=== PATIENT | female | born 1980 | race Caucasian/White ===

== ENCOUNTER 2019-09-12 10:20 | Outpatient (RCR) | payer MEDICARE, MEDICAID, SELFPAY | END 2019-12-08 23:59 | disposition home or self-care (01) | LOC: ANHLAB 10:20 | PROVIDERS: PCP Internal Medicine; Visit Provider Internal Medicine Critical Care Medicine | DX: J47.9 Bronchiectasis, uncomplicated (principal); J84.115 Respiratory bronchiolitis interstitial lung disease | CPT/HCPCS: 87015; 87070; 87102; 87106; 87116; 87205; 87206 ==

== ENCOUNTER 2019-12-29 10:40 | Outpatient (CLI) | payer MEDICARE, MEDICAID, SELFPAY ==
--- NOTE | ~2019-12-29 | CT_ITS ---
EXAMINATION:CT chest wo con DATE: 12/29/2019 10:59 INDICATION: Other nonspecific abnormal finding of lung field. Chronic obstructive pulmonary disease. TECHNIQUE: Computed tomography (CT) of the chest was performed without intravenous contrast. Automate d exposure control and iterative reconstruction technique were employed. The dose-length product (DLP ) was 132.86 mGy-cm. COMPARISON: Chest CT 05/04/2018 FINDINGS: There is mild emphysema. There is mild atelectasis in the inferior lungs. There is mild sca rring at the lung apices. There are a few stable bilateral pulmonary nodules measuring up to 5 mm nod ule in left upper lobe, consistent with granulomatous disease. No pleural effusion. The heart size is normal. No pericardial effusion. There is mild thoracic spondylosis. There is a benign bone island i n T11 vertebral body. IMPRESSION: 1. Mild emphysema. Reviewed, dictated and finalized at location A. IMPRESSION: 1. Mild emphysema.
== END 2019-12-29 10:41 | disposition home or self-care (01) ==
PROVIDERS: PCP Internal Medicine; Visit Provider Internal Medicine Critical Care Medicine
DX: J43.9 Emphysema, unspecified (principal)
CPT/HCPCS: 71250

== ENCOUNTER → 2020-04-05 14:56 | Outpatient (REF) | payer MEDICARE, MEDICAID, SELFPAY | LOC: ANHLAB 14:56 | PROVIDERS: PCP Internal Medicine; Visit Provider Nurse Practitioner | DX: D22.5 Melanocytic nevi of trunk (principal) | CPT/HCPCS: 88305; 88342 ==

== ENCOUNTER → 2020-07-12 08:43 | Outpatient (CLI) | payer MEDICARE, MEDICAID, SELFPAY ==
--- NOTE | ~2020-07-12 | MMUS_ITS ---
EXAMINATION: MM diagnostic isabel BI w vicky, US breast BI complete HISTORY: Chronic right breast lump TECHNIQUE: ML, MLO and craniocaudal 3-D tomosynthesis images of were performed and synthetic 2-D imag es were generated. CAD analysis was submitted and interpreted. High resolution complete bilateral silvia ast ultrasound was performed. COMPARISON: 07/05/2018 bilateral diagnostic mammogram and complete bilateral breast ultrasound 08/02/2015 bilateral diagnostic digital mammogram and Limited bilateral breast ultrasound examination BREAST PARENCHYMAL COMPOSITION: The breasts are extremely dense, which lowers the sensitivity of mamm ography. FINDINGS: MAMMOGRAPHIC FINDINGS: A few benign calcifications are noted on the right. No suspicious mass, architectural distortion, mal ignant calcification, skin thickening or retraction of either breast is evident. ULTRASOUND: Right breast: 12:00 2 cm from nipple: Parallel circumscribed sonolucency measuring 3.7 x 4.8 x 2.4 mm, with through transmission, compatible with cyst. 12:00 2 cm from nipple: 3.3 x 3.0 x 2.6 mm mildly septated cyst 1:00 1 cm from nipple: Parallel circumscribed sonolucency measuring 2.1 x 7.2 x 6.3 mm, with through transmission, consistent with simple cyst 3:00 1 cm from nipple: Parallel circumscribed 1.3 x 3.6 x 3.9 mm simple cyst 6:00 2 cm from nipple: 1.5 x 3.4 mm parallel circumscribed sonolucency, likely a small cyst 7:00 2 cm from nipple: 2.8 x 5 x 2.7 mm parallel circumscribed hypoechoic lesion, with through transm ission, likely a small cyst 9:00 3 cm from nipple: Parallel circumscribed 2.7 x 5.0 mm x 5.3 mm sonolucency with through transmis kiarra posterior enhancement, likely a cyst 3.5 mm subareolar right renal cyst Left breast: Superficial parallel circumscribed 9.2 x 2.8 x 6.2 mm sonolucency, consistent with benign lesion, lik shara a cyst 5:00 1 cm from nipple: Parallel circumscribed hypoechoic 6 x 6.4 x 1.9 mm sonolucency consistent with simple cyst 9:00 2 cm from nipple: Parallel circumscribed hypoechoic 3.2 x 2.9 x 4.3 mm lesion without internal v ascularity or suspicious shadowing, consistent with benign process. IMPRESSION: 1. No mammographic evidence of malignancy 2. Routine annual mammographic screening is recommended. BI-RADS Category 2: Benign finding(s). Reviewed, dictated and finalized at location A. ER FELLER IMPRESSION: 1. No mammographic evidence of malignancy 2. Routine annual mammographic screening is recommended. BI-RADS Category 2: Benign finding(s).
== END ==
PROVIDERS: PCP Internal Medicine; Visit Provider Internal Medicine
DX: N63.10 Unspecified lump in the right breast, unspecified quadrant (principal); R92.2 Inconclusive mammogram
CPT/HCPCS: 76641; 77062; 77066; G0279

== ENCOUNTER 2020-12-30 16:38 | Emergency (ER) | payer MEDICARE, MEDICAID, SELFPAY ==
--- NOTE | ~2020-12-30 | XR_ITS ---
EXAMINATION: XR chest 2V 12/30/2020 17:01 INDICATION: For 3 days PROCEDURE: 2 view chest COMPARISON: 03/15/2017 FINDINGS: The lungs are clear. The cardiomediastinal silhouette is within normal limits. There are no pleural effusions. There is no pneumothorax suspected. IMPRESSION: 1: NO ACUTE CARDIOPULMONARY DISEASE. Reviewed, dictated and finalized at location A.
--- NOTE | 2020-12-30 16:46 | ED.URI ---
HPI - URI/Sore Throat General Chief Complaint: Upper Respiratory Infection Stated Complaint: chest tightness/cough/runny nose Time Seen by Provider: 12/30/20 16:46 Source: patient and RN notes reviewed Mode of arrival: ambulatory Limitations: no limitations History of Present Illness HPI Narrative: 40-year-old female presents to the [facility] with complaints of cough, runny nose. States her symptoms started , 3 days ago and every day it has been getting worse. Has a nebulizer at home due to her chronic COPD and emphysema however has not used it. Has tried taking Zyrtec and DayQuil but states her symptoms are not getting any better. Denies chest pain. Denies fevers. No abdominal pain. Related Data Home Medications Medication Instructions Recorded Confirmed albuterol sulfate 90 mcg/actuation 1 puff INHALATION Q4H PRN 06/11/20 12/10/20 aerosol inhaler glycopyrrolate 9 mcg-formoterol 2 puff INHALATION Q12H 06/11/20 12/10/20 4.8 mcg HFA aerosol inhaler glycopyrrolate-formoterol [Bevespi INHALATION 12/30/20 Aerosphere] metronidazole VAGINAL 12/30/20 Allergies Allergy/AdvReac Type Severity Reaction Status Date / Time phenytoin Allergy Unknown Hives Verified 12/10/20 10:19 venom-wasp AdvReac Intermediate Muscle Pain Verified 12/10/20 10:19 Review of Systems Review of Systems: All systems reviewed & are unremarkable except as noted in HPI and below Constitutional: Constitutional: Reports no additional constitutional complaints, Denies chills and Denies fever(s) Eyes: Eyes: Reports no additional eye complaints ENT: Reports as per HPI and Reports nasal congestion Comments: Rhinorrhea Cardiovascular: Cardiovascular: Reports no additional cardiovascular complaints and Denies chest pain Respiratory: Respiratory: Reports as per HPI, Reports chest congestion, Reports cough, Reports dyspnea and Reports wheezing Gastrointestinal: Gastrointestinal: Reports no additional gastrointestinal complaints, Denies abdominal pain, Denies diarrhea, Denies nausea and Denies vomiting Musculoskeletal: Musculoskeletal: Reports no additional musculoskeletal complaints and Denies back pain Integumentary/Breasts: Skin/Breast: Reports system reviewed and no additional complaints, except as docu Neurologic: Reports system reviewed and no additional complaints, except as documented Psychiatric: Psychiatric: Reports no additional psychiatric complaints Allergic/Immunologic: Allergic/Immunologic: Reports no additional allergic/immunologic complaints [facility] Past Medical History Medical History Acute right otitis media Allergic rhinitis Alopecia areata Anxiety Aspiration into airway Asthma exacerbation Bronchiectasis, uncomplicated Chronic obstructive pulmonary disease, unspecified Chronic rhinitis Cough Eczema Epilepsy, unspecified, not intractable, without status epilepticus Family hx colonic polyps Gastroesophageal reflux disease without esophagitis Lung nodule Maxillary sinusitis Mild intermittent asthma without complication Nicotine dependence, unspecified, uncomplicated Pulmonary nodules Rash Tobacco use Underweight (06/02/16) Unspecified asthma, uncomplicated Surgical History Surgical History H/O sinus surgery H/O: knee surgery History of knee surgery Family History Family History Mother Asthma Family history of chronic obstructive pulmonary disease Father Patient's father is Acute myocardial infarction Other Family history of autism Social History Social History Smoking packs per day: 1 Smoking cigarettes per day: 20.0 Years smoked: 30 Smoking pack-years: 30.00 Smoking status: Current every day smoker Tobacco type: cigarettes Second hand tobacco smoke exposure: Yes Alcohol
[2020-12-30 16:48] VITALS: BP 125/62; PULSE 89; RESP 20; TEMP 37; O2SAT 100
[2020-12-30 16:49] VITALS: BP 125/62; PULSE 89; RESP 20; TEMP 37; O2SAT 100
[2020-12-30] MEDS: predniSONE 20 MG TABLET PO (17:03)
[2020-12-30] MEDS: IPRATROPIUM BR 0.02% INH SOLN 0.5 MG/2.5 ML VIAL INHALATION (17:04)
[2020-12-30] MEDS: ALBUTEROL SULFATE NEB 2.5 MG/3 ML INH INHALATION (17:04)
[2020-12-30 17:15] VITALS: PULSE 80; RESP 16; O2SAT 99
== END 2020-12-30 17:35 | disposition home or self-care (01) ==
PROVIDERS: Emergency Provider Nurse Practitioner; PCP Internal Medicine
DX: J40 Bronchitis, not specified as acute or chronic (principal); F17.210 Nicotine dependence, cigarettes, uncomplicated; L65.9 Nonscarring hair loss, unspecified; F41.9 Anxiety disorder, unspecified; J44.9 Chronic obstructive pulmonary disease, unspecified; G40.909 Epilepsy, unspecified, not intractable, without status epilepticus; K21.9 Gastro-esophageal reflux disease without esophagitis
CPT/HCPCS: 71046; 94640; 99213; G0463; J7512

== ENCOUNTER 2021-01-11 13:08 | Emergency (ER) | payer MEDICARE, MEDICAID, SELFPAY ==
[2021-01-11 13:16] VITALS: BP 136/72; PULSE 94; RESP 18; TEMP 36.6; O2SAT 98
--- NOTE | 2021-01-11 13:54 | ED.ANIMALBIT ---
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 Patient is unsure of her last tetanus shot. Patient reports that she did submit a police report. Patient does take hydrocodone daily due to chronic pain. Patient denies numbness, erythema, bruising or bleeding. MD complaint: animal bite Onset (ago): hour(s) (1.5) Animal: dog Mechanism: bite Location - Extremities: Left: ankle Associated symptoms: none Related Data Patient tetanus UTD: No Home Medications Medication Instructions Recorded Confirmed albuterol sulfate 90 mcg/actuation 1 puff INHALATION Q4H PRN 06/11/20 12/10/20 aerosol inhaler glycopyrrolate 9 mcg-formoterol 2 puff INHALATION Q12H 06/11/20 12/10/20 4.8 mcg HFA aerosol inhaler glycopyrrolate-formoterol [Bevespi INHALATION 12/30/20 Aerosphere] metronidazole VAGINAL 12/30/20 Allergies Allergy/AdvReac Type Severity Reaction Status Date / Time phenytoin Allergy Unknown Hives Verified 12/10/20 10:19 venom-wasp AdvReac Intermediate Muscle Pain Verified 12/10/20 10:19 Review of Systems Constitutional: Constitutional: Denies chills, Denies fever(s) and Denies weakness ENT: Denies dysphagia, Denies epistaxis and Denies sore throat Cardiovascular: Cardiovascular: Denies chest pain, Denies rapid heart rate and Denies slow heart rate Respiratory: Respiratory: Denies chest congestion, Denies cough and Denies wheezing Musculoskeletal: Musculoskeletal: Denies myalgias and Denies joint swelling Integumentary/Breasts: Comments: Dog bite to left ankle Neurologic: Denies dizziness PMFSH Past Medical History Medical History Acute right otitis media Allergic rhinitis Alopecia areata Anxiety Aspiration into airway Asthma exacerbation Bronchiectasis, uncomplicated Chronic obstructive pulmonary disease, unspecified Chronic rhinitis Cough Eczema Epilepsy, unspecified, not intractable, without status epilepticus Family hx colonic polyps Gastroesophageal reflux disease without esophagitis Lung nodule Maxillary sinusitis Mild intermittent asthma without complication Nicotine dependence, unspecified, uncomplicated Pulmonary nodules Rash Tobacco use Underweight (06/02/16) Unspecified asthma, uncomplicated Surgical History Surgical History H/O sinus surgery H/O: knee surgery History of knee surgery Family History Family History Mother Asthma Family history of chronic obstructive pulmonary disease Father Patient's father is Acute myocardial infarction Other Family history of autism Social History Social History Smoking packs per day: 1 Smoking cigarettes per day: 20.0 Years smoked: 30 Smoking pack-years: 30.00 Smoking status: Current every day smoker Tobacco type: cigarettes Second hand tobacco smoke exposure: Yes Alcohol intake: current Alcohol use details: Rarely Substance use: never Substance use type: does not use Comments At time of signature, I agree with nursing past medical, surgical, social and family history. There is no relevant family history pertinent to the presenting complaint. Exam Const: General: no acute distress Nutritional Appearance: well nourished Orientation/consciousness: patient oriented x3 Neck: Neck: normal visual inspection Resp: Effort & Inspection: normal respiratory effort and not tachypneic Auscultation: clear to auscult
[2021-01-11] MEDS: TETANUS,DIPHTHERIA,AC PERTUSSIS ADULT (0.5 ML) BOOSTRIX IM (14:06)
== END 2021-01-11 14:30 | disposition home or self-care (01) ==
PROVIDERS: Emergency Provider Nurse Practitioner Family; PCP Internal Medicine
DX: S91.032A Puncture wound without foreign body, left ankle, initial encounter (principal); W54.0XXA Bitten by dog, initial encounter; Z23 Encounter for immunization; F17.210 Nicotine dependence, cigarettes, uncomplicated; J44.9 Chronic obstructive pulmonary disease, unspecified; L63.9 Alopecia areata, unspecified
CPT/HCPCS: 90471; 90715; 99213; G0463

== ENCOUNTER 2021-04-11 09:58 | Emergency (ER) | payer MEDICARE, MEDICAID, SELFPAY ==
--- NOTE | 2021-04-11 10:04 | ED.URI ---
HPI - URI/Sore Throat General Chief Complaint: Upper Respiratory Infection Stated Complaint: chest tightness/lower back pain/difficulty breathi Time Seen by Provider: 04/11/21 10:05 Source: patient, RN notes reviewed and old records reviewed Mode of arrival: ambulatory Limitations: no limitations History of Present Illness HPI Narrative: 68-kj[age]-old female with a history of alopecia, COPD, seizures, chronic back pain presents to the [facility] with complaints of left-sided chest pain radiating down her arm into her leg since yesterday. States that she called her primary care provider was told to go get evaluated. Patient states that her cough has not changed it still similar to her COPD. Has been taking her allergy medication and home medication. Related Data Home Medications Medication Instructions Recorded Confirmed albuterol sulfate 90 mcg/actuation 1 puff INHALATION Q4H PRN 06/11/20 12/10/20 aerosol inhaler glycopyrrolate 9 mcg-formoterol 2 puff INHALATION Q12H 06/11/20 12/10/20 4.8 mcg HFA aerosol inhaler metronidazole VAGINAL 12/30/20 Allergies Allergy/AdvReac Type Severity Reaction Status Date / Time phenytoin Allergy Unknown Hives Verified 12/10/20 10:19 venom-wasp AdvReac Intermediate Muscle Pain Verified 12/10/20 10:19 Review of Systems Review of Systems: All systems reviewed & are unremarkable except as noted in HPI and below Constitutional: Constitutional: Reports no additional constitutional complaints Eyes: Eyes: Reports no additional eye complaints ENT: Reports system reviewed and no additional complaints, except as documented Cardiovascular: Cardiovascular: Reports as per HPI, Reports chest pain, Denies rapid heart rate, Reports radiating jaw, neck or arm pain (Radiates to left arm and leg intermittently) and Denies slow heart rate Respiratory: Respiratory: Reports as per HPI, Reports cough and Reports dyspnea Comments: Denies new cough or shortness of breath, states it the same as my COPD Gastrointestinal: Gastrointestinal: Reports no additional gastrointestinal complaints, Denies abdominal pain, Denies nausea and Denies vomiting Musculoskeletal: Musculoskeletal: Reports no additional musculoskeletal complaints Integumentary/Breasts: Skin/Breast: Reports system reviewed and no additional complaints, except as docu Neurologic: Reports system reviewed and no additional complaints, except as documented Psychiatric: Psychiatric: Reports no additional psychiatric complaints Allergic/Immunologic: Allergic/Immunologic: Reports no additional allergic/immunologic complaints PMFSH Past Medical History Medical History Acute right otitis media Allergic rhinitis Alopecia areata Anxiety Aspiration into airway Asthma exacerbation Bronchiectasis, uncomplicated Chronic obstructive pulmonary disease, unspecified Chronic rhinitis Cough Eczema Epilepsy, unspecified, not intractable, without status epilepticus Family hx colonic polyps Gastroesophageal reflux disease without esophagitis Lung nodule Maxillary sinusitis Mild intermittent asthma without complication Nicotine dependence, unspecified, uncomplicated Pulmonary nodules Rash Tobacco use Underweight (06/02/16) Unspecified asthma, uncomplicated Surgical History Surgical History H/O sinus surgery H/O: knee surgery History of knee surgery Family History Family History Mother Asthma Family history of chronic obstructive pulmonary disease Father Patient's father is Acute myocardial infarction Other Family history of autism Social History Social History Smoking packs per day: 1 Smoking cigarettes per day: 20.0 Years smoked: 30 Smoking pack-years: 30.00 Smoking status: Current every day smoker Tobacco type: cigare
[2021-04-11 10:05] VITALS: BP 120/66; PULSE 92; RESP 12; TEMP 36.9; O2SAT 100
--- NOTE | 2021-04-11 10:16 | ECG_ITS ---
Measurements Intervals [place] Rate: 89 P: 57 RI: 165 QRS: 64 QRSD: 94 T: 49 QT: 363 QTc: 443 Interpretive Statements SINUS RHYTHM INCOMPLETE RIGHT BUNDLE BRANCH BLOCK BORDERLINE R WAVE PROGRESSION, ANTERIOR LEADS BORDERLINE T WAVE ABNORMALITY- ANT/INF LEADS BORDERLINE ECG Electronically Signed On 04-11-2021 11:21:56 CDT by Ciro Green D.O.
== END 2021-04-11 10:37 | disposition short-term general hospital (02) ==
LOC: EXPGLEN 10:02
PROVIDERS: Emergency Provider Nurse Practitioner; PCP Internal Medicine
DX: R07.9 Chest pain, unspecified (principal); I45.10 Unspecified right bundle-branch block; L65.9 Nonscarring hair loss, unspecified; J44.9 Chronic obstructive pulmonary disease, unspecified; G40.909 Epilepsy, unspecified, not intractable, without status epilepticus; K21.9 Gastro-esophageal reflux disease without esophagitis; F17.210 Nicotine dependence, cigarettes, uncomplicated; F41.9 Anxiety disorder, unspecified
CPT/HCPCS: 93005; 99213; G0463

== ENCOUNTER 2021-04-11 10:39 | Emergency (ER) | payer MEDICARE, MEDICAID, SELFPAY ==
[2021-04-11] VITALS (18 sets, daily range): BP systolic 106–126; BP diastolic 71–76; PULSE 64–96; RESP 12–29; TEMP 36.8–36.9; O2SAT 97–100
--- NOTE | ~2021-04-11 | CT_ITS ---
EXAMINATION: CTA chest PE protocol DATE: 04/11/2021 14:17 INDICATION: Chest pain. TECHNIQUE: Computed tomography angiography (CTA) of the chest was performed with 100 mL Omnipaque-350 intravenous contrast timed to evaluate the pulmonary arteries. Coronal maximum intensity projection 3D-reconstructions were created by the technologist. Automated exposure control and iterative reconst ruction technique were employed. The dose-length product was 141.83 mGy-cm. COMPARISON: Chest CT 12/29/2019 FINDINGS: There is mild scarring at the lung apices. There is mild emphysema. There is mild atelectas is bilaterally. No pleural effusion. The heart size is normal. No pericardial effusion. There is no p ulmonary embolus. There is mild thoracic spondylosis. There is a chronic benign bone island in T11. IMPRESSION: 1. No pulmonary embolus. 2. Mild emphysema. Reviewed, dictated and finalized at location A.
--- NOTE | ~2021-04-11 | XR_ITS ---
EXAMINATION: XR chest 2V 04/11/2021 11:22 INDICATION: Chest pain and shortness of breath PROCEDURE: 2 view chest COMPARISON: Comparison to multiple prior studies sequentially, with oldest reviewed study dated 03/12. FINDINGS: The lungs are clear. The cardiomediastinal silhouette is within normal limits. There are no pleural effusions. There is no pneumothorax suspected. IMPRESSION: 1: NO ACUTE CARDIOPULMONARY DISEASE. Reviewed, dictated and finalized at location B.
--- NOTE | 2021-04-11 11:05 | ECG_ITS ---
Measurements Intervals [place] Rate: 84 P: 44 MD: 156 QRS: 70 QRSD: 89 T: 57 QT: 364 QTc: 431 Interpretive Statements SINUS RHYTHM INCOMPLETE RIGHT BUNDLE BRANCH BLOCK BORDERLINE R WAVE PROGRESSION, ANTERIOR LEADS BORDERLINE ECG Electronically Signed On 04-11-2021 20:02:11 CDT by Ciro Green D.O.
[2021-04-11 11:21] LABS: Basophils Percent Auto 0.8 % (0.2-1.2); Eosinophils Absolute Auto 0.2 K/mm3 (0-0.3); Eosinophils Percent Auto 4.1 % (0-4.4); Hematocrit 40.9 % (37.0-47.0); Hemoglobin 13.6 g/dL (12.0-15.0); Immature Granulocyte Absolute 0.01 K/mm3 (0.00-0.031); Immature Granulocyte Percent A 0.3 % (0-0.5); Immature Platelet Fraction Pct 3.8 % (0.9-11.2); Lymphocytes Absolute Auto 1.49 K/mm3 (0.9-3.2); Lymphocytes Percent Auto 38.2 % (18.3-44.2); Mean Corpuscular HGB Conc 33.3 g/dl (32-36); Mean Corpuscular Hemoglobin 32.2 pg (26-34); Mean Corpuscular Volume 96.7 fl (80-100); Mean Platelet Volume 9.8 fl (7.4-10.4); Monocytes Absolute Auto 0.4 K/mm3 (0.1-0.6); Monocytes Percent Auto 9.5 % (2.6-8.5); Neutrophils Absolute Auto 1.8 K/mm3 (1.3-6.7); Neutrophils Percent Auto 47.1 % (45.5-73.1); Platelet Count Result 158 k/mm3 (150-375); Red Blood Count 4.23 M/mm3 (4.2-5.4); Red Cell Distribution Width 12.7 % (11.5-14.5); White Blood Count 3.9 K/mm3 (4.5-10.0)
[2021-04-11 11:28] LABS: INR 1.1; Prothrombin Time 13.7 Seconds (11.1-14.7)
[2021-04-11 11:29] LABS: Partial Thromboplastin Time 37.2 SECONDS (22.3-36.8)
[2021-04-11 11:31] LABS: Anion Gap 9 mmol/L (8-16); Blood Urea Nitrogen 5 mg/dL (7-17); Carbon Dioxide 26 mmol/L (22-30); Chloride 103 mmol/L (98-107); Estimated CRCL calculation 55 ml/min; Estimated Glomerular Filt Rate > 60; Glucose 107 mg/dL (65-110); Sodium 138 mmol/L (137-145)
[2021-04-11 11:42] LABS: Troponin I < 0.012 ng/mL (0.000-0.034)
[2021-04-11 11:48] LABS: Atypical Lymphocytes Present; Platelet Estimate Adequate (Adequate)
--- NOTE | 2021-04-11 14:05 | PC.NURSE ---
No need for chewable aspirin per MD
--- NOTE | 2021-04-11 14:18 | ED.CHESTPAIN ---
HPI - Chest Pain General Chief Complaint: Chest Pain Stated Complaint: chest pain, tightness, hard to breathe Time Seen by Provider: 04/11/21 12:56 History of Present Illness HPI narrative: Patient is a 40-year-old female with history of COPD who presents ER with chest pain. Ongoing for last 3 days. Central chest worse with deep breath. Associated with exertional shortness of breath. No fevers or chills or sweats. No productive cough. No lower extremity swelling. No hemoptysis. Has not tried any pain medications. Cannot identify alleviating factors. Related Data Home Medications Medication Instructions Recorded Confirmed albuterol sulfate 90 mcg/actuation 1 puff INHALATION Q4H PRN 06/11/20 12/10/20 aerosol inhaler glycopyrrolate 9 mcg-formoterol 2 puff INHALATION Q12H 06/11/20 12/10/20 4.8 mcg HFA aerosol inhaler metronidazole VAGINAL 12/30/20 Allergies Allergy/AdvReac Type Severity Reaction Status Date / Time phenytoin Allergy Unknown Hives Verified 04/11/21 13:49 venom-wasp AdvReac Intermediate Muscle Pain Verified 04/11/21 13:49 Review of Systems Review of Systems: All systems reviewed & are unremarkable except as noted in HPI and below Constitutional: Constitutional: Denies chills, Denies fever(s) and Denies weakness ENT: Denies nasal congestion and Denies sore throat Cardiovascular: Cardiovascular: Reports chest pain, Denies rapid heart rate and Denies radiating jaw, neck or arm pain Respiratory: Respiratory: Denies cough, Reports dyspnea and Denies wheezing Gastrointestinal: Gastrointestinal: Denies abdominal pain, Denies nausea and Denies vomiting Neurologic: Denies syncope, Denies focal weakness and Denies numbness [facility] Past Medical History Medical History Acute right otitis media Allergic rhinitis Alopecia areata Anxiety Aspiration into airway Asthma exacerbation Bronchiectasis, uncomplicated Chronic obstructive pulmonary disease, unspecified Chronic rhinitis Cough Eczema Epilepsy, unspecified, not intractable, without status epilepticus Family hx colonic polyps Gastroesophageal reflux disease without esophagitis Lung nodule Maxillary sinusitis Mild intermittent asthma without complication Nicotine dependence, unspecified, uncomplicated Pulmonary nodules Rash Tobacco use Underweight (06/02/16) Unspecified asthma, uncomplicated Surgical History Surgical History H/O sinus surgery H/O: knee surgery History of knee surgery Family History Family History Mother Asthma Family history of chronic obstructive pulmonary disease Father Patient's father is Acute myocardial infarction Other Family history of autism Social History Social History Smoking packs per day: 1 Smoking cigarettes per day: 20.0 Years smoked: 30 Smoking pack-years: 30.00 Smoking status: Current every day smoker Tobacco type: cigarettes Second hand tobacco smoke exposure: Yes Alcohol intake: current Alcohol use details: Rarely Substance use: never Substance use type: does not use Exam Narrative: GENERAL: Well-appearing, well-nourished, and in no acute distress. HEAD: Normocephalic, atraumatic. EYES: PERRL and EOMI. CHEST: Clear to auscultation. No respiratory distress. HEART: Regular rate and rhythm. Normal peripheral pulses. ABDOMEN: Soft, nontender, nondistended. EXTREMITIES: Normal range of motion. No edema. SKIN: Warm, dry, no rash. NEURO: Alert and oriented x3. PSYCH: Normal mood and affect. Course Course Emergency Course: Troponin negative x2. CTA without evidence of infection or PE. Discharge home. Pleurisy versus MSK pain. Vital Signs Vital signs: Vital Signs Temperature 98.2 F 04/11/21 11:06 Pulse Rate 96 04/11/21 11:06 Respiratory Rate 1
[2021-04-11] MEDS: KETOROLAC 15 MG/ML VIAL (*BKC) IV PUSH (14:28)
[2021-04-11 14:41] LABS: Troponin I < 0.012 ng/mL (0.000-0.034)
== END 2021-04-11 15:36 | disposition home or self-care (01) ==
PROVIDERS: Emergency Medicine; Emergency Provider Emergency Medicine; PCP Internal Medicine
DX: R07.9 Chest pain, unspecified (principal); J44.9 Chronic obstructive pulmonary disease, unspecified; J45.20 Mild intermittent asthma, uncomplicated; G40.909 Epilepsy, unspecified, not intractable, without status epilepticus; K21.9 Gastro-esophageal reflux disease without esophagitis; F17.210 Nicotine dependence, cigarettes, uncomplicated; I45.10 Unspecified right bundle-branch block; R94.31 Abnormal electrocardiogram [ECG] [EKG]
CPT/HCPCS: 36415; 71046; 71275; 80048; 84484; 85025; 85055; 85610; 85730; 93005; 96374; 99284; J1885; Q9967

== ENCOUNTER 2021-05-06 09:32 | Outpatient (CLI) | payer MEDICARE, MEDICAID, SELFPAY | END 2021-05-06 09:33 | disposition home or self-care (01) | LOC: ANHSURGERY 09:36 | PROVIDERS: PCP Internal Medicine; Visit Provider Obstetrics & Gynecology | DX: N92.0 Excessive and frequent menstruation with regular cycle (principal); Z01.818 Encounter for other preprocedural examination | CPT/HCPCS: 36415; 86850; 86900; 86901 ==

== ENCOUNTER 2021-05-08 01:07 | Day surgery (SDC) | payer MEDICARE, MEDICAID, SELFPAY ==
[2021-05-03 10:29] VITALS: BMI 17.9
--- NOTE | 2021-05-03 10:43 | PC.NURSE ---
Report to the Outpatient Waiting Room, entrance under the green pavilion located off [facility], at time 6:00 on date 05/08/21. OR Time: 7:30. - You and your visitor will be asked a series of questions to screen for COVID 19 for your protection. - A mask is required within the hospital. - Only one visitor is allowed at this time. Patient visitors will be guided where to wait when not with patient. Preoperative COVID Testing Requirements: No COVID Test needed if: (proof is required; if not received patient will have Rapid Test prior to entry) - Patient has received COVID Vaccine at least 14 days prior to procedure date or - Patient has positive COVID test result within last 90 days of surgery date. COVID Test needed if above criteria is not met If not COVID vaccinated a COVID test must be conducted within 72 hours of surgery and patient is asked to isolate self from time of testing until procedure. You will go to the [facility] for your COVID testing. The [facility] is located at the corner of [address] [facility]. You will only be called if COVID results are positive and your surgeon may reschedule your elective surgery date. Patients may have clear liquids (water, carbonated beverages, clear teas, apple juice) until 3 hours prior to surgery with a maximum of 20 ounces. - No food from midnight until time of surgery - Infants may have breast milk until 4 hours before surgery, infant formula 6 hours prior to surgery. - Children will be allowed to drink immediately following surgery. If applicable, please bring a bottle or sippy cup to assist with drinking. Juice, water, soda, and popsicles are readily available. For infants on formula, please bring formula the day of surgery. Pacifiers are allowed. Take the following medications with a SIP of water the morning of surgery: INHALERS (AND BRING ALBUTEROL WITH YOU), PAIN PILL (IF NEEDED), KEPPRA, METHYLPREDNISONE, METRONIDAZOLE, ATIVAN (IF NEEDED) Medications to discontinue per physician: N/A Date to take last dose: N/A Please no make-up, nail spanish, hairspray, perfume, deodorant, or body powder the day of surgery. No jewelry (including any body piercings) or valuables the day of surgery, leave them at home. Please take a shower or bath the night before, or the morning of, surgery with an antibacterial soap. Wear comfortable, loose fitting clothing. Children are encouraged to wear pajamas. - Jewelry must be removed prior to entering the operating room. Rings and piercings that are not removed may be cut off. - The hospital will not accept responsibility for valuables. - Please leave all valuables, including medications, at home the day of surgery. If you are going home after surgery, a licensed hack driver must drive you home. - NO public transportation without another adult. - We recommend that an adult stay with you for 24 hours following discharge. - We also recommend that you do not drive, make important decision, drink alcoholic beverages, or take any drugs that were not prescribed by your health care provider for at least 24 hours after your discharge time. For Pediatric surgeries, we recommend two adults accompany the child home (only one inside the building at this time). Follow any additional instructions given to you from your surgeon. Telephone instructions given to ROLF SALAZAR and asked if any additional questions and then verbalized understanding. Patient advised to call surgeon office or pre surgery nurse liaison [phone] if any additional questions.
[2021-05-08] VITALS (10 sets, daily range): BP systolic 118–147; BP diastolic 56–84; PULSE 45–98; RESP 16–22; TEMP 36–36.8; O2SAT 96–100
[2021-05-08] MEDS: ACETAMINOPHEN 500 MG TABLET 1000 MG PO (06:45)
[2021-05-08] MEDS: KETOROLAC 15 MG/ML VIAL (*BKC) IV PUSH (06:46)
[2021-05-08] MEDS: LACTATED RINGERS 1,000 ML 30 ML IV CONT ×2 (06:47→09:03)
--- NOTE | 2021-05-08 07:10 | WPDANESEPPF ---
Anes - Initial Pre Proc Eval Procedure: Operation Date: 05/08/21 07:30 Proposed Procedures p Total Laparoscopic Hysterectomy with Bilateral Salpingectomy - Rodo Leo MD Date/Time: 05/08/21 07:10 Surgeon: Rood Leo MD Pre Op Diagnosis: menorrhaghia Patient Data Age: 40 Gender: F Height: 1.55 m Weight: 43.09 kg Allergies Allergy/AdvReac Type Severity Reaction Status Date / Time phenytoin Allergy Unknown Hives Verified 05/03/21 10:22 venom-wasp AdvReac Intermediate Muscle Pain Verified 05/03/21 10:22 Home Medications Medication Instructions Recorded Confirmed Type albuterol sulfate 2.5 mg INHALATION Q6H PRN #360 ml 06/11/20 05/03/21 Rx albuterol sulfate 90 mcg/actuation 1 puff INHALATION Q4H PRN 06/11/20 05/03/21 History aerosol inhaler glycopyrrolate 9 mcg-formoterol 2 puff INHALATION Q12H 06/11/20 05/03/21 History 4.8 mcg HFA aerosol inhaler omeprazole 40 mg capsule,delayed See Rx Instructions .ROUTE 09/25/20 05/03/21 Rx release .COMPLEX #180 cap cetirizine 10 mg tablet 10 mg PO DAILY PRN #90 tablet 11/27/20 05/03/21 Rx lorazepam 1 mg tablet 1 mg PO TID PRN #90 tablet 02/12/21 05/03/21 Rx fluconazole 150 mg tablet 150 mg PO DAILY #1 tablet 04/30/21 05/03/21 Rx methylprednisolone 4 mg tablets in See Rx Instructions PO PER PKG DIR 04/30/21 05/03/21 Rx a dose pack #21 ea bupropion HCl 150 mg PO HS 05/03/21 05/03/21 History levetiracetam 500 mg PO BID 05/03/21 05/03/21 History metronidazole 500 mg PO BID 05/03/21 05/03/21 History hydrocodone 10 mg-acetaminophen 1 tablet PO Q4-6H PRN #55 tablet 05/06/21 Rx 325 mg tablet valacyclovir 500 mg PO BID 05/08/21 05/08/21 History Patient hx anesthesia problems: none Family hx anesthesia problems: none Results Review: All pre-operative results and documents have been reviewed as part of the pre-operative evaluation. PMFSH Past Medical History Medical History Acute right otitis media Allergic rhinitis Alopecia areata Anxiety Aspiration into airway Asthma exacerbation Bronchiectasis, uncomplicated Chronic obstructive pulmonary disease, unspecified Chronic rhinitis Cough Eczema Epilepsy, unspecified, not intractable, without status epilepticus Family hx colonic polyps Gastroesophageal reflux disease without esophagitis Lung nodule Maxillary sinusitis Mild intermittent asthma without complication Nicotine dependence, unspecified, uncomplicated Pulmonary nodules Rash Tobacco use Underweight (06/02/16) Unspecified asthma, uncomplicated Surgical History Surgical History H/O sinus surgery H/O: knee surgery History of knee surgery Family History Family History Mother Asthma Family history of chronic obstructive pulmonary disease Father Patient's father is Acute myocardial infarction Other Family history of autism Social History Social History Smoking packs per day: 1.5 Smoking cigarettes per day: 30.0 Years smoked: 26 Smoking pack-years: 39.00 Smoking status: Current every day smoker Tobacco type: cigarettes Second hand tobacco smoke exposure: Yes Alcohol intake: current Alcohol use details: A COUPLE A YEAR Substance use: never Substance use type: does not use Living arrangements: with family Additional living arrangements comments: CHILDREN Spiritual care concerns: No Anes - Eval Final PreProcedure Day of Procedure 05/08/21 07:10 Patient weight: normal Heart: regular rate and rhythm Lungs: clear to auscultation Airway: Mallampati scale class II Neurological: alert and oriented Last oral intake: >/= 8 hours ASA classification: III Emergent: no Anesthetic plan: proceed Anesthesia type and monitoring: general ETT and standard monitoring Results Revi
--- NOTE | 2021-05-08 07:21 | WPDHPUPDATE1 ---
History and Physical Update Update Date/Time: 05/08/21 07:21 History and Physical has been reviewed, including an updated exam of the patient. There are NO changes in the patient's condition. Risks, benefits, and alternatives have been discussed and questions answered. Patient agrees to proceed with procedure.
[2021-05-08] MEDS: ceFAZolin 2 GM/D5W 50 ML 2 GM/50 ML BAG IVPB (07:30)
--- NOTE | 2021-05-08 09:03 | P.OP_ITS ---
Procedure Note - Detailed Date of Procedure 05/08/21 Pre-op Diagnosis menorrhaghia Post-op Diagnosis same (right ovarian cyst) Procedure Performed Total laparoscopic hysterectomy and bilateral salpingectomy. Right Ovarian Cystectomy Surgeon Rodo Leo MD Anesthesia general Indications Severe menometrorrhagia, possible cervical mass Findings Moderate sized uterus, normal appearing ovaries and normal-appearing tubes. Description of Procedure This patient was taken to the operating room. She was prepped and draped in the dorsal lithotomy position after induction of general anesthesia. The uterine manipulator and Chloé cup were placed. This was done with a speculum and tenaculum. The speculum was placed. The cervix was grasped with a tenaculum. The stay sutures were placed at 3 and 9:00 a.m.. The stay sutures of 0 Vicryl were brought through the appropriately sized Chloé cup. The tip of the BLAYNE manipulator was placed in the intrauterine cavity. The cup was slid into place around the cervix and into the fornices. It was locked into place. The sutures were then wrapped around the handle and tied under tension. A 5 mm skin incision was made in the left upper quadrant the abdomen. A 5 mm t rocar was inserted into the intrauterine cavity under direct visualization of the scope. Pneumoperitoneum was achieved. A left lower quadrant 11 mm incision was made with scalpel. An 11 mm trocar was inserted into the anterior abdominal cavity under direct visualization the scope. A 5 mm infraumbilical incision was made with a scalpel and a 5 mm trocar was inserted the intra-abdominal cavity u nder direct visualization of the scope. Right ovarian cystectomy was performed. The cyst was transected with the LigaSure. The cut surface was cauterized. Bilateral ureteral lysis was performed. This was done from the pelvic brim down to the uterine artery. This was done with careful dissection using sharp and blunt dissection. The fallopian tubes were removed bilaterally. The mesosalpin x around the fallopian tubes were cauterized transected with LigaSure cautery. This was done in a bilateral fashion from the ovary to the uterine cornua. The fallopian tube was transected at the uterine cornu and amputated. The tube was taken out the left lower quadrant trocar site. In a stepwise fashion along the lateral aspects of the uterus the round ligament and broad ligaments were cauter ized transected down to the level of the uterine arteries. A bladder flap was created in the bladder was moved distally to the end of the cervix and over the Chloé cup. The bilateral uterine arteries were cauterized and transected. Colpotomy was then performed. In a circumferential fashion the vagina was transected using unipolar cautery. The incision was made down on the Chloé cup. The uterus and cervix were taken out through the vagina. A pneumo occluder was placed in the vagina. The vaginal cuff was closed with a 0 V lock suture in a running fashion. The pelvis was irrigated with copious amounts antibiotic irrigation. The ureters were again examined and found to be intact and flowing freely under the uterine arteries into the bladder. The bladder was intact. It was examined directly. The vagina was irrigated with Betadine solution after removal of the Pneumo occluder. The patient was taken to recovery room. She was stable condition. Sponge lap and needle counts were correct x2. Estimated Blood Loss 50 Drains Yes Packing No Pathology yes Complications No immediate complications Condition stable Disposition floor
--- NOTE | 2021-05-08 09:19 | SUR.PHASEI ---
SIDE RAILS PADDED FOR SEIZURE PRECAUTIONS
--- NOTE | 2021-05-08 09:45 | SUR.PHASEI ---
PT SLEEPY, AROUSES TO VERBAL STIMULI. ASKED IF SHE'S HAVING PAIN. PT STATES NO. BACK TO SLEEP. PT ROLLED ONTO LEFT SIDE FOR COMFORT.
--- NOTE | 2021-05-08 10:09 | SUR.PHASEI ---
PT SLEEPING. AROUSES EASILY. DENIES PAIN AT THIS TIME.
--- NOTE | 2021-05-08 10:30 | PC.NURSE ---
This patient, Yolanda Castro, was received from PACU per bed to room 289. Patient/family oriented to unit policies and routines
[2021-05-08] MEDS: DEXTROSE 5%/0.45% SOD CHL 1,000 ML 125 ML IV CONT (10:38)
[2021-05-08] MEDS: KETOROLAC 30 MG/ML VIAL (*BKC) IV PUSH (10:39)
[2021-05-08] MEDS: HYDROcodone/acetaminophen (*CRX) 10-325 MG TABLET 1 TAB PO ×2 (10:54→15:00)
[2021-05-08] MEDS: levETIRAcetam 500 MG TABLET PO ×2 (14:59→20:05)
[2021-05-08] MEDS: FLUCONAZOLE 150 MG TABLET PO (14:59)
[2021-05-08] MEDS: ACETAMINOPHEN 325 MG TABLET 650 MG PO (20:05)
[2021-05-08] MEDS: buPROPion HCL XL (24 HR) 150 MG TABCR PO (20:05)
[2021-05-08] MEDS: IBUPROFEN 600 MG TABLET PO (20:05)
[2021-05-09 04:45] VITALS: BP 126/63; PULSE 54; RESP 16; TEMP 36.6
[2021-05-09] MEDS: IBUPROFEN 600 MG TABLET PO (04:48)
[2021-05-09] MEDS: ACETAMINOPHEN 325 MG TABLET 650 MG PO (04:48)
--- NOTE | 2021-05-09 07:54 | PM.GYNPNOP ---
SIGN LETTERER - A/P Postoperative Procedures: Procedures Operation Date: 05/08/21 07:30 Actual Procedure Side Surgeon p Total Laparoscopic Hysterectomy with Bilateral Salpingectomy, Right ovarianCystectomy Bilateral Rodo Leo MD Postoperative day: 1 Postoperative status: doing well Postoperative plan: see orders Time Spent With Patient Time: Total time spent is greater than 50% in coordination of care (as documented) at patient's floor/unit and/or counseling patient: Time with patient: less than 15 minutes SIGN LETTERER- PN:Subj Post-Op Subjective Date/time seen: 05/09/21 07:54 Subjective: patient reports feeling better, patient has no complaints and pain is well controlled Exam Const: General: healthy appearing, comfortable and no acute distress Resp: Auscultation: clear to auscultation bilaterally, no rales, no rhonchi and no wheezes Cardio: Rate: regular rate Heart sounds: no click, no murmurs and no rubs GI: Inspection: non-distended Auscultation: normal bowel sounds Extrem: General: normal to inspection, no pedal edema and no calf tenderness SIGN LETTERER - PN: Obj Data Vital Signs Vital Signs: Vital Signs - 24 hr 05/08/21 09:03 05/08/21 09:20 05/08/21 09:35 Temperature 96.9 F L Pulse Rate 73 52 L 51 L Respiratory Rate 20 22 H 22 H Blood Pressure 146/84 H 147/63 H 142/59 H Pulse Oximetry 100 100 100 05/08/21 09:50 05/08/21 10:05 05/08/21 10:25 Temperature 97 F L Pulse Rate 51 L 52 L 52 L Respiratory Rate 22 H 21 H 16 Blood Pressure 139/62 134/62 128/56 L Pulse Oximetry 98 99 96 05/08/21 12:14 05/08/21 15:04 05/08/21 20:05 Temperature 97.1 F L 96.8 F L 98.2 F Pulse Rate 50 L 69 45 L Respiratory Rate 16 16 16 Blood Pressure 141/60 H 121/70 118/62 Pulse Oximetry 100 99 05/09/21 04:45 Temperature 97.8 F Pulse Rate 54 L Respiratory Rate 16 Blood Pressure 126/63 Pulse Oximetry Intake/Output Intake/Output: Intake & Output 11/15/21 11/16/21 11/17/21 11/18/21 23:59 23:59 23:59 23:59 Intake Total 700 500 Output Total 1655 200 Balance -955 300 Meds/Results Medications: Active Medications Generic Name Dose Route Start Last Admin Trade Name Freq PRN Reason Stop Dose Admin Acetaminophen 650 mg 05/08/21 19:23 05/09/21 04:48 Acetaminophen 325 Mg Tablet PO 650 mg Q6H PRN Administration Headache Hydrocodone Bitart/Acetaminophen 1 tab 05/08/21 10:14 Hydrocodone/Acetaminophen (*Crx) 5-325 Mg Tablet PO Q3H PRN Pain Rated 5 or Less Hydrocodone Bitart/Acetaminophen 1 tab 05/08/21 10:14 05/08/21 15:00 Hydrocodone/Acetaminophen (*Crx) 10-325 Mg Tablet PO 1 tab Q3H PRN Administration Pain Rated 6 or Greater Albuterol 2.5 mg 05/08/21 10:14 Albuterol Sulfate Neb 2.5 Mg/0.5 Ml Inh INHALATION Q6H PRN shortness of breath or wheezing Bupropion HCl 150 mg 05/08/21 21:00 05/08/21 20:05 Bupropion Hcl Xl (24 Hr) 150 Mg Tabcr PO 150 mg HS SIMONA Administration Ibuprofen 600 mg 05/08/21 10:14 05/09/21 04:48 Ibuprofen 600 Mg Tablet PO 600 mg Q6H PRN Administration Cramping Ketorolac Tromethamine 30 mg 05/08/21 10:14 05/08/21 10:39 Ketorolac 30 Mg/Ml Vial (*Bkc) IV PUSH 05/13/21 10:13 30 mg Q6H PRN Administration Pain Rated 4-6 Levetiracetam 500 mg 05/08/21 10:30 05/08/21 20:05 Levetiracetam 500 Mg Tablet PO 500 mg Q12HR SIMONA Administration Loratadine 10 mg 05/09/21 09:00 Loratadine 10 Mg Tablet PO DAILY SIMONA Lorazepam 1 mg 05/08/21 10:25 Lorazepam (*Crx) 0.5 Mg Tablet PO TID PRN anxiety Naloxone HCl 0.1 mg 05/08/21 10:14 Naloxone Hcl 0.4 Mg/Ml Vial IV PUSH Q2M PRN Respiratory rate less than 10 Ondansetron HCl 4 mg 05/08/21 10:14 Ondansetron Inj 4 Mg/2 Ml Vial IV PUSH Q6H PRN Nausea And Vomiting Umeclidinium/Vilanterol 1 puff 05/09/21 08:00 Umeclidinium/Vilanterol 62.5-25 Mcg Ellipta INHALATION DAILYRT SIMONA
[2021-05-09 08:40] VITALS: BP 133/73; PULSE 66; RESP 16; TEMP 36.6; O2SAT 99
[2021-05-09 09:15] VITALS: PULSE 66; RESP 16; O2SAT 99
[2021-05-09] MEDS: levETIRAcetam 500 MG TABLET PO (09:21)
[2021-05-09] MEDS: HYDROcodone/acetaminophen (*CRX) 10-325 MG TABLET 1 TAB PO (09:21)
[2021-05-09] MEDS: LORATADINE 10 MG TABLET PO (09:22)
[2021-05-09] MEDS: UMECLIDINIUM/VILANTEROL 62.5-25 MCG ELLIPTA 1 PUFF INHALATION (10:18)
== END 2021-05-09 11:25 | disposition home or self-care (01) ==
LOC: ANHSURGERY 06:07 → ANHOB2 10:15
PROVIDERS: PCP Internal Medicine; Visit Provider Obstetrics & Gynecology
PROC: 0UT9FZZ Resection of Uterus, Via Natural or Artificial Opening With Percutaneous Endoscopic Assistance (ICD-10-PCS; CPT 58571; principal; 2021-05-08 07:30)
DX: N92.0 Excessive and frequent menstruation with regular cycle (principal); N83.01 Follicular cyst of right ovary; N88.8 Other specified noninflammatory disorders of cervix uteri; N71.1 Chronic inflammatory disease of uterus; N80.0 Endometriosis of uterus; D25.0 Submucous leiomyoma of uterus; D25.1 Intramural leiomyoma of uterus; D25.2 Subserosal leiomyoma of uterus; N83.8 Other noninflammatory disorders of ovary, fallopian tube and broad ligament; J44.9 Chronic obstructive pulmonary disease, unspecified; G40.909 Epilepsy, unspecified, not intractable, without status epilepticus; J45.20 Mild intermittent asthma, uncomplicated; K21.9 Gastro-esophageal reflux disease without esophagitis; F41.9 Anxiety disorder, unspecified; Z79.51 Long term (current) use of inhaled steroids; F17.210 Nicotine dependence, cigarettes, uncomplicated
CPT/HCPCS: 58571; 58662; 36415; 86850; 86900; 86901; 88305; 88307; 94640; 99199; A9270; J0690; J1100; J1885; J2250; J2405; J2704; J2710; J3010; J7030; J7120

== ENCOUNTER 2021-08-09 16:10 | Inpatient (IN) | payer OTHER, SELFPAY ==
[2021-08-09] VITALS (19 sets, daily range): BP systolic 91–115; BP diastolic 52–73; PULSE 74–85; RESP 16; TEMP 36.3–37; O2SAT 90–100; BMI 18.3
--- NOTE | ~2021-08-09 | CT_ITS ---
EXAMINATION: CT abdomen pelvis w con EXAM DATE: 08/09/2021 19:31 INDICATION: R sided abd pain eval for appy TECHNIQUE: Spiral CT of the abdomen and pelvis was performed following intravenous injection of 100 m L Omnipaque 350. Axial, coronal and sagittal images of the abdomen and pelvis were reviewed. The do se-length product (DLP) for this examination was 183.91 mGy-cm. The exposure was tailored according to patient size (auto mA exposure control), and iterative reconstruction (ASIR) was used as additiona l dose reduction technique. There is no prior study for comparison. FINDINGS: There is moderate amount of free intraperitoneal gas. There are scattered foci of gas ident ified between the rectum and vagina and regional inflammation. Small amount of free pelvic fluid. Cou ld be vaginal or rectal perforation. No colonic diverticula identified. Stomach, duodenum are without any evidence of gastritis or peptic ulcer disease. The liver, spleen, adrenal glands and pancreas are unremarkable. Gallbladder is unremarkable. No bi liary obstruction. Portal and splenic veins are patent. Kidneys enhance symmetrically. There is no hydronephrosis. The uterus is not identified and has likely been surgically resected. The bladder is unremarkable. There is no retroperitoneal or pelvic lymphadenopathy. The appendix is normal. The stomach and small bowel are unremarkable. There is expected amount of c olonic stool. The heart is normal in size. There are no pericardial or pleural effusions. The jean ng bases are unremarkable. There are no osteoblastic or osteolytic lesions identified. Chronic bilat eral L5 spondylolysis. IMPRESSION: Moderate amount of free intraperitoneal gas with inflammation and small foci in the pouch of Javier. Consider vaginal or rectal perforation. I discussed this case with Dr. Wiseman at 08/09/2021 19:49 BILLING AND QUALITY TECHNICIAN Reviewed, dictated and finalized at location G. ING AND QUALITY TECHNICIAN IMPRESSION: Moderate amount of free intraperitoneal gas with inflammation and s mall foci in the pouch of Javier. Consider vaginal or rectal perforation. I discussed this case with Dr. Wiseman at 08/09/2021 19:49 BILLING AND QUALITY TECHNICIAN
[2021-08-09] MEDS: MORPHINE SULFATE (*CRX) 4 MG/ML INJ IV PUSH ×3 (18:05→23:31)
[2021-08-09] MEDS: ONDANSETRON INJ 4 MG/2 ML VIAL IV PUSH (18:05)
[2021-08-09] MEDS: SODIUM CHLORIDE 0.9% IV 1,000 ML 999 ML IV CONT (18:06)
[2021-08-09 18:16] LABS: Hematocrit 43.3 % (37.0-47.0); Hemoglobin 14.5 g/dL (12.0-15.0); Immature Platelet Fraction Pct 6.2 % (0.9-11.2); Mean Corpuscular HGB Conc 33.5 g/dl (32-36); Mean Corpuscular Volume 98.4 fl (80-100); Mean Platelet Volume 10.2 fl (7.4-10.4); Platelet Count Result 182 k/mm3 (150-375); Red Cell Distribution Width 12.7 % (11.5-14.5); White Blood Count 13.8 K/mm3 (4.5-10.0)
[2021-08-09 18:23] LABS: Lactic Acid Reflex 1.5 mmol/L (0.7-2.1)
[2021-08-09 18:33] LABS: Alanine Aminotransferase 20 U/L (4-35); Albumin Level 4.7 g/dL (3.5-5.1); Alkaline Phosphatase 110 U/L (38-126); Anion Gap 7 mmol/L (8-16); Aspartate Amino Transferase 31 U/L (14-36); Bilirubin,Total 0.8 mg/dL (0.2-1.3); Blood Urea Nitrogen 10 mg/dL (7-17); Calcium 9.6 mg/dL (8.4-10.2); Carbon Dioxide 27 mmol/L (22-30); Chloride 102 mmol/L (98-107); Estimated CRCL calculation 61 ml/min; Estimated Glomerular Filt Rate > 60; Glucose 113 mg/dL (65-110); Lipase 62 U/L (23-300); Potassium 4.2 mmol/L (3.4-5.0); Sodium 136 mmol/L (137-145)
--- NOTE | 2021-08-09 18:58 | PC.NURSE ---
no urine preg due to pt history of hysterectomy
[2021-08-09 19:02] LABS: Band Neutrophils Percent 14 % (0-6); Lymphocytes Absolute Manual 0.82 K/mm3 (1.1-4.5); Monocytes Absolute Manual 0.69 K/mm3 (0.1-0.90); Monocytes Percent Manual 5 % (3-9); Neutrophils Absolute Manual 12.28 K/mm3 (1.7-7.2); Neutrophils Percent Manual 75 % (46-73); Platelet Estimate Adequate (Adequate); Total Cells Counted 100
--- NOTE | 2021-08-09 19:07 | ED.FEMALEGU ---
HPI - Female Genitourinary General Chief complaint: Vaginal Bleeding <Romain Herrera MD - Last Filed: 08/10/21 11:56> Stated complaint: vaginal bleeding <Romain Herrera MD - Last Filed: 08/10/21 11:56> Time Seen by Provider: 08/09/21 17:22 <Romain Herrera MD - Last Filed: 08/10/21 11:56> Source: patient <Romain Herrera MD - Last Filed: 08/10/21 11:56> History of Present Illness HPI Narrative: Patient presents with right lower quadrant abdominal pain. Patient when she was having intercourse shortly after she had severe pain noted a gush of fluid out of her vagina as well as some vaginal bleeding her pain increases she came to the ER for evaluation. Pain is sharp radiates up the right side of her abdomen is constant worse with any sort of movement. Reports some nausea denies vomiting. <Romain Herrera MD - Last Filed: 08/10/21 11:56> Related Data Home medications: Home Medications Medication Instructions Recorded Confirmed albuterol sulfate 90 mcg/actuation 1 puff INHALATION Q4H PRN 06/11/20 08/10/21 aerosol inhaler fluconazole 150 mg tablet 150 mg PO .COMPLEX 07/29/21 08/10/21 valacyclovir 500 mg tablet 500 mg PO DAILY tablet 07/29/21 08/10/21 albuterol sulfate See Rx Instructions .ROUTE 08/10/21 08/10/21 .COMPLEX PRN metronidazole 500 mg PO BID 08/10/21 08/10/21 <Romain Herrera MD - Last Filed: 08/10/21 11:56> Allergies/Adverse reactions: Allergies Allergy/AdvReac Type Severity Reaction Status Date / Time phenytoin Allergy Unknown Hives Verified 07/29/21 14:40 venom-wasp AdvReac Intermediate Muscle Pain Verified 07/29/21 14:21 <Romain Herrera MD - Last Filed: 08/10/21 11:56> Review of Systems Review of Systems: CONSTITUTIONAL: Denies fever, chills, or sweats. EYES: Denies visual changes, redness, or discharge. ENT: Denies rhinorrhea, congestion, sore throat, or otalgia. CARDIOVASCULAR: Denies chest pain, palpitations, or edema. RESPIRATORY: Denies cough or dyspnea. GASTROINTESTINAL: Abdominal pain and nausea GENITOURINARY: Denies dysuria or hematuria. SKIN: Denies rash or itching. MUSCULOSKELETAL: Denies back pain, joint pain, or myalgia. NEUROLOGIC: Denies headache, numbness, dizziness, or weakness. PSYCHIATRIC: Denies anxiety or depression. <Romain Herrera MD - Last Filed: 08/10/21 11:56> All systems reviewed & are unremarkable except as noted in HPI and below <Romain Herrera MD - Last Filed: 08/10/21 11:56> PMFSH Past Medical History Medical History: Medical History Acute right otitis media Allergic rhinitis Alopecia areata Anxiety Aspiration into airway Asthma exacerbation Bronchiectasis, uncomplicated Chronic obstructive pulmonary disease, unspecified Chronic rhinitis Cough Eczema Epilepsy, unspecified, not intractable, without status epilepticus Family hx colonic polyps Gastroesophageal reflux disease without esophagitis Lung nodule Maxillary sinusitis Mild intermittent asthma without complication Nicotine dependence, unspecified, uncomplicated Pulmonary nodules Rash Tobacco use Underweight (06/02/16) Unspecified asthma, uncomplicated <Romain Herrera MD - Last Filed: 08/10/21 11:56> Surgical History Surgical History: Surgical History H/O sinus surgery H/O: knee surgery History of knee surgery S/P [id number] <Romain Herrera MD - Last Filed: 08/10/21 11:56> Family History Family History: Family History Mother Asthma Family history of chronic obstructive pulmonary disease Father Patient's father is Acute myocardial infarction Other Family history of autism <Romain Herrera MD - Last Filed: 08/10/21 11:56> Social History Social History: Social History
[2021-08-09 19:10] LABS: Add Urine Microscopic? YES; Appearance Urine Clear (Clear); Bacteria Urine 4+ /hpf; Bilirubin Urine Negative (Negative); Blood Urine Negative (Negative); Color Urine Yellow (Yellow); Glucose Urine UA Negative (Negative); Ketones Urine Negative (Negative); Leukocyte Esterase Ur 1+ LEU/UL (Negative); Mucus Urine Rare /lpf; Nitrate Urine Negative (Negative); Protein Urine Negative (Negative); RBC Urine 0-2 /hpf (0-2); Specific Grav Ur 1.016 (1.001-1.035); Squamous Epithelial Cell Urine Occasional /hpf (Few); Urobilinogen Urine Negative mg/dL (<2.0); WBC Urine 0-3 /hpf
[2021-08-09 21:21] LABS: SARS-CoV-2 RNA PCR Negative
[2021-08-09] MEDS: LACTATED RINGERS 1,000 ML 125 ML IV CONT (21:32)
--- NOTE | 2021-08-09 23:30 | ADMGEN ---
This patient, Yolanda Castro, was admitted to [facility]. Patient/family oriented to hospital policies and general routines including ID bracelet, bed and alarms, visiting hours, pain management, procedures, bathroom and other care routines, personal items, smoking policy, room service/diet, and visiting hours. Information on how to activate the Rapid Response Team has been discussed. Patient/Family are encouraged to report perceived risks to care and to ask questions if they do not understand what they are told or what they should do.
[2021-08-10] VITALS (19 sets, daily range): BP systolic 94–118; BP diastolic 56–68; PULSE 59–82; RESP 14–19; TEMP 36.3–36.7; O2SAT 90–100
[2021-08-10] MEDS: MORPHINE SULFATE (*CRX) 4 MG/ML INJ IV PUSH ×5 (05:57→22:07)
[2021-08-10] MEDS: LACTATED RINGERS 1,000 ML 125 ML IV CONT ×2 (05:59→20:22)
--- NOTE | 2021-08-10 08:41 | WPDANESEPPF ---
Anes - Initial Pre Proc Eval Date/Time: 08/10/21 08:41 Surgeon: Rodo Leo MD Pre Op Diagnosis: vaginal cuff dehisence, free air in abdomen Patient Data Age: 41 Gender: F Height: 1.55 m Weight: 44 kg Last Vital Signs Temp 36.3 C L 08/10/21 04:00 Pulse 70 08/10/21 06:00 Resp 14 08/10/21 04:00 BP 105/61 08/10/21 04:00 Pulse Ox 93 08/10/21 04:00 Allergies Allergy/AdvReac Type Severity Reaction Status Date / Time phenytoin Allergy Unknown Hives Verified 07/29/21 14:40 venom-wasp AdvReac Intermediate Muscle Pain Verified 07/29/21 14:21 Home Medications Medication Instructions Recorded Confirmed Type albuterol sulfate 90 mcg/actuation 1 puff INHALATION Q4H PRN 06/11/20 08/10/21 History aerosol inhaler cholecalciferol (vitamin D3) 50 50 mcg PO DAILY #90 tablet 05/13/21 08/10/21 Rx mcg (2,000 unit) tablet levetiracetam 500 mg tablet 500 mg PO BID #60 tablet 05/26/21 08/10/21 Rx cetirizine 10 mg tablet 10 mg PO DAILY PRN #90 tablet 05/31/21 08/10/21 Rx bupropion HCl 150 mg 24 hr tablet, 150 mg PO HS #90 tablet 06/17/21 08/10/21 Rx extended release fluconazole 150 mg tablet 150 mg PO .COMPLEX 07/29/21 08/10/21 History valacyclovir 500 mg tablet 500 mg PO DAILY tablet 07/29/21 08/10/21 History hydrocodone 10 mg-acetaminophen 1 tablet PO Q4-6H PRN #55 tablet 08/09/21 08/10/21 Rx 325 mg tablet lorazepam 1 mg tablet 1 mg PO TID PRN #90 tablet 08/09/21 08/10/21 Rx albuterol sulfate See Rx Instructions .ROUTE 08/10/21 08/10/21 History .COMPLEX PRN metronidazole 500 mg PO BID 08/10/21 08/10/21 History Laboratory Tests 08/09/21 08/09/21 08/09/21 18:07 18:07 18:07 WBC 13.8 K/mm3 H K/mm3 (4.5-10.0) RBC 4.40 M/mm3 M/mm3 (4.2-5.4) Hgb 14.5 g/dL g/dL (12.0-15.0) Hct 43.3 % % (37.0-47.0) MCV 98.4 fl fl (80-100) MCH 33.0 pg pg (26-34) MCHC 33.5 g/dl g/dl (32-36) RDW 12.7 % % (11.5-14.5) Plt Count 182 k/mm3 k/mm3 (150-375) MPV 10.2 fl fl (7.4-10.4) Immature Gran % (Auto) Not Reportable Neut % (Auto) Not Reportable Lymph % (Auto) Not Reportable [place] % (Auto) Not Reportable Eos % (Auto) Not Reportable Baso % (Auto) Not Reportable Lymph # (Auto) Not Reportable [place] # (Auto) Not Reportable Eos # (Auto) Not Reportable Baso # (Auto) Not Reportable Abs Immat Gran (auto) Not Reportable Absolute Neuts (auto) Not Reportable Absolute Nucleated RBC Not Reportable Total Counted 100 Neutrophils % (Manual) 75 % H % (46-73) Band Neutrophils % 14 % H % (0-6) Lymphocytes % (Manual) 6.0 % L % (18-44) Monocytes % (Manual) 5 % % (3-9) Nucleated RBC % Not Reportable Abs Neuts (Manual) 12.28 K/mm3 H K/mm3 (1.7-7.2) Abs Lymphs (Manual) 0.82 K/mm3 L K/mm3 (1.1-4.5) Abs Monocytes (Manual) 0.69 K/mm3 K/mm3 (0.1-0.90) Platelet Estimate Adequate (Adequate) % Immature Plt Fraction 6.2 % % (0.9-11.2) Sodium 136 mmol/L L mmol/L (137-145) Potassium 4.2 mmol/L mmol/L (3.4-5.0) Chloride 102 mmol/L mmol/L (98-107) Carbon Dioxide 27 mmol/L mmol/L (22-30) Anion Gap 7 mmol/L L mmol/L (8-16) BUN 10 mg/dL D mg/dL (7-17) Creatinine 0.70 mg/dL mg/dL (0.7-1.0) Estim Creat Clear Calc 61 ml/min ml/min Estimated GFR > 60 (59 - ) Glucose 113 mg/dL H mg/dL (65-110) Lactic Acid 1.5 mmol/L mmol/L (0.7-2.1) Calcium 9.6 mg/dL mg/dL (8.4-10.2) Total Bilirubin 0.8 mg/dL mg/dL (0.2-1.3) AST 31 U/L U/L (14-36) ALT 20 U/L U/L (4-35) Alkaline Phosphatase 110 U/L U/L
--- NOTE | 2021-08-10 12:43 | PC.NURSE ---
Patient to Pre-Op via bed.
[2021-08-10] MEDS: fentaNYL CITRATE INJ (*CRX) 100 MCG/2 ML VIAL 25 MCG IV PUSH ×4 (12:56→15:15)
[2021-08-10] MEDS: LACTATED RINGERS 1,000 ML 30 ML IV CONT (12:58)
--- NOTE | 2021-08-10 13:14 | WPDHPUPDATE1 ---
History and Physical Update Update Date/Time: 08/10/21 13:14 History and Physical has been reviewed, including an updated exam of the patient. There are NO changes in the patient's condition. Risks, benefits, and alternatives have been discussed and questions answered. Patient agrees to proceed with procedure.
--- NOTE | 2021-08-10 13:14 | PM.IMHP ---
H&P: HPI History of Present Illness Date/Time: 08/10/21 13:14 this patient is a 41-year-old female with COPD and seizure disorder who presented the emergency department with sudden onset severe lower abdominal pain. She is 13 weeks and 3 days postop from a total laparoscopic hysterectomy and bilateral salpingo-oophorectomy. Patient was having intercourse yesterday and shortly after began having severe abdominal pain was sharp. It was incapacitating. She was helped to the emergency department. Examination and evaluation there showed free air in the intra-abdominal cavity the and a likely defect in vaginal cuff where clear fluid was leaking. She denies any fevers or chills. She denies any chest pain or shortness of breath. She denies constipation diarrhea. Chief Complaint: Abdominal pain. Review of Systems Review of Systems: All systems reviewed & are unremarkable except as noted in HPI and below Constitutional: Constitutional: Denies chills, Denies fatigue, Denies fever(s) and Denies weakness Eyes: Eyes: Denies blurry vision, Denies change in vision, Denies loss of peripheral vision, Denies loss of vision, Denies other visual disturbances and Denies eye pain ENT: Denies vertigo, Denies dizziness, Denies hearing loss, Denies mouth pain, Denies nasal obstruction, Denies neck mass and Denies neck pain Cardiovascular: Cardiovascular: Denies chest pain, Denies diaphoresis, Denies syncope, Denies leg edema and Denies dyspnea Respiratory: Respiratory: Denies chest congestion, Denies cough, Denies hemoptysis, Denies dyspnea and Denies wheezing Gastrointestinal: Gastrointestinal: Denies abdominal pain, Denies constipation, Denies diarrhea, Denies nausea and Denies vomiting Genitourinary: Genitourinary: Denies hematuria, Denies change in libido, Denies nocturia, Denies genital lesions, Denies flank pain and Denies urinary urgency Musculoskeletal: Musculoskeletal: Denies abnormal gait, Denies back pain, Denies myalgias, Denies arthralgias, Denies joint swelling, Denies muscle weakness and Denies neck pain Integumentary/Breasts: Skin/Breast: Denies swelling, Denies breast pain, Denies breast mass, Denies dry skin, Denies nipple discharge, Denies unusual bruising and Denies jaundice Neurologic: Denies Neuro-related abnormal movements, Denies Abnormal speech present, Denies abnormal gait, Denies behavioral changes, Denies confusion, Denies vertigo, Denies dizziness, Denies syncope, Denies loss of vision, Denies memory loss, Denies convulsions and Denies weakness Psychiatric: Psychiatric: Denies abnormal sleep pattern, Denies behavioral changes, Denies change in libido, Denies confusion, Denies depression, Denies anhedonia and Denies memory loss Endocrine: Endocrine: Reports no additional endocrine complaints, Denies change in libido and Denies fatigue Hematologic/Lymphatic: Hematologic/Lymphatic: Reports no additional hematologic/lymphatic complaints Allergic/Immunologic: Allergic/Immunologic: Reports no additional allergic/immunologic complaints and Denies wheezing PMFSH Past Medical History Medical History Acute right otitis media Allergic rhinitis Alopecia areata Anxiety Aspiration into airway Asthma exacerbation Bronchiectasis, uncomplicated Chronic obstructive pulmonary disease, unspecified Chronic rhinitis Cough Eczema Epilepsy, unspecified, not intractable, without status epilepticus Family hx colonic polyps Gastroesophageal reflux disease without esophagitis Lung nodule Maxillary sinusitis Mild intermittent asthma without complication Nicotine dependence, unspecified, uncomplicated Pulmonary nodules Rash Tobacco use Underweight (06/02/16) Unspecified asthma, uncomplicated Surgical History Surgical History H/O sinus surgery H/O: knee surgery History of knee surgery S/P YESY-BSO Family History Family History (Reviewed
--- NOTE | 2021-08-10 14:29 | SUR.OPER ---
BRUISE NOTED ON OUTER LEFT THIGH PRIOR TO SURGERY
--- NOTE | 2021-08-10 14:37 | W.PM.PROC2 ---
Procedure Note - Detailed Date of Procedure 08/10/21 Pre-op Diagnosis vaginal cuff dehisence, free air in abdomen Post-op Diagnosis same (Vaginal cuff abscess) Procedure Performed Closure of vaginal dehiscence and transvaginal abscess drain placement Surgeon Rodo Leo MD Anesthesia MAC Indications Vaginal cuff dehiscence and pelvic cuff abscess. Findings 1.5 cm defect in the vaginal cuff, mildly purulent fluid from the open vaginal cuff Description of Procedure The patient was taken to the operating room. She was prepped and draped in the dorsal lithotomy position. A speculum was placed in the vagina. The above findings were noted. 0 PDS was used to close the defect in the vaginal cuff. Four interrupted sutures were used across the vaginal cuff. Healthy tissue and large bites were taken to place the sutures. A small area in the central portion of the defect was left slightly open for placement of a Berna drain. A quarter-inch [place] drain was placed in this in the defect. It just fit. The opening was too small for bowel to enter. The prolonged fluid egress through the procedure. The [place] drain was held in place with 0 Vicryl. This will be taken out in the office later in the week. Patient tolerated procedure well. She was taken cover stable condition. Sponge lap and needle counts were correct x2. Estimated Blood Loss 0 Urine Output 400 Packing No Complications No immediate complications Condition stable Disposition PACU
--- NOTE | 2021-08-10 15:37 | PC.NURSE ---
Patient returned to room following surgery. Report received from LIBBY Escoto.
[2021-08-10] MEDS: metroNIDAZOLE 500 MG/ISO 100ML 500 MG/100 ML BAG 100 MG IVPB (16:21)
[2021-08-10] MEDS: levETIRAcetam 500 MG TABLET PO (20:20)
[2021-08-10] MEDS: buPROPion HCL XL (24 HR) 150 MG TABCR PO (20:22)
[2021-08-10] MEDS: metroNIDAZOLE 500 MG/ISO 100ML 500 MG/100 ML BAG 50 MG IVPB (22:07)
[2021-08-10] MEDS: ONDANSETRON INJ 4 MG/2 ML VIAL IV PUSH (22:08)
[2021-08-11] VITALS (10 sets, daily range): BP systolic 90–101; BP diastolic 45–60; PULSE 65–75; RESP 10–19; TEMP 36.5–36.6; O2SAT 90–98
[2021-08-11] MEDS: metroNIDAZOLE 500 MG/ISO 100ML 500 MG/100 ML BAG 100 MG IVPB ×3 (05:14→22:35)
[2021-08-11] MEDS: levETIRAcetam 500 MG TABLET PO ×2 (08:03→20:12)
[2021-08-11] MEDS: LACTATED RINGERS 1,000 ML 125 ML IV CONT ×2 (08:49→17:35)
[2021-08-11] MEDS: MORPHINE SULFATE (*CRX) 4 MG/ML INJ IV PUSH (10:39)
--- NOTE | 2021-08-11 14:42 | PC.NURSE ---
This patient, Yolanda Castro, was received from [ [facility]] on 08/11/21 at 1442. Patient/family oriented to unit policies and routines. Report received from Darryn
--- NOTE | 2021-08-11 16:12 | PM.GYNPNOP ---
METALIZER - A/P Assessment and plan (1) Vaginal cuff dehiscence: Code(s): T81.31XA - Disruption of external operation (surgical) wound, not elsewhere classified, initial encounter Status: Acute (2) Pelvic abscess: Status: Acute Assessment and Plan: this patient is a 41-year-old female who is postop day 1 from a exam under anesthesia and drainage of vaginal cuff abscess with drain placement. She is doing better than before the procedure. She denies any fever chills. She does report some bowel function. She is getting broad-spectrum antibiotics and has a drain placed. We will continue observation. Postoperative Procedures: Procedures Operation Date: 08/10/21 13:00 Actual Procedure Side Surgeon p VAGINAL EXAM UNDER ANESTHESIA, CLOSURE OF VAGINAL CUFF Not Applicable Rodo Leo MD Time Spent With Patient Time: Total time spent is greater than 50% in coordination of care (as documented) at patient's floor/unit and/or counseling patient: Time with patient: less than 15 minutes METALIZER- PN:Subj Post-Op Subjective Date/time seen: 08/11/21 16:12Improved lower abdominal pelvic pain. Passing flatus, denies nausea, vomiting, fever, chills. Watery vaginal discharge present. Non odorous Exam Const: General: healthy appearing, comfortable and no acute distress Resp: Auscultation: clear to auscultation bilaterally, no rales, no rhonchi and no wheezes Cardio: Rate: regular rate Heart sounds: no click, no murmurs and no rubs GI: Inspection: non-distended Auscultation: normal bowel sounds Extrem: General: normal to inspection, no pedal edema and no calf tenderness METALIZER - PN: Obj Data Vital Signs Vital Signs: Vital Signs - 24 hr 08/10/21 16:30 08/10/21 18:00 08/10/21 20:00 Temperature 98 F Pulse Rate 74 76 73 Respiratory Rate 16 16 15 Blood Pressure 107/68 97/58 L 96/58 L Pulse Oximetry 94 90 92 08/10/21 22:00 08/10/21 22:31 08/11/21 00:00 Temperature 98 F Pulse Rate 77 73 Respiratory Rate 15 Blood Pressure 93/45 L Pulse Oximetry 98 98 08/11/21 02:00 08/11/21 04:00 08/11/21 06:00 Temperature 98 F Pulse Rate 70 75 69 Respiratory Rate 10 L Blood Pressure 93/56 L Pulse Oximetry 98 08/11/21 08:00 08/11/21 10:00 08/11/21 12:00 Temperature 97.7 F 97.8 F Pulse Rate 74 70 67 Respiratory Rate 16 19 Blood Pressure 97/59 L 101/60 Pulse Oximetry 97 98 08/11/21 14:46 08/11/21 15:01 Temperature 97.7 F Pulse Rate 67 Respiratory Rate 16 Blood Pressure 100/50 L Pulse Oximetry 97 Intake/Output Intake/Output: Intake & Output 08/08/21 08/09/21 08/10/21 08/11/21 23:59 23:59 23:59 23:59 Intake Total 1050 2920 2550 Output Total 2300 1800 Balance 1050 620 750 Meds/Results Medications: Active Medications Generic Name Dose Route Start Last Admin Trade Name Freq PRN Reason Stop Dose Admin Hydrocodone Bitart/Acetaminophen 1 tab 08/11/21 12:25 Hydrocodone/Acetaminophen (*Crx) 5-325 Mg Tablet PO Q4H PRN Pain Rated 4-6 Albuterol 1 puff 08/10/21 15:29 Albuterol Sulfate (*Sp) Aerosol 1 Puff INHALATION Q4HRT PRN Bronchospasm Bupropion HCl 150 mg 08/10/21 21:00 08/10/21 20:22 Bupropion Hcl Xl (24 Hr) 150 Mg Tabcr PO 150 mg HS SIMONA Administration Piperacillin/Tazobactam/Dextrose 3.375 gm in 50 mls @ 100 mls/hr 08/10/21 01:00 08/11/21 13:55 Zosyn 3.375 Gm/D5w 50ml Pm IVPB Infused Q6HR SIMONA Infusion Lactated Ringer's 1,000 mls @ 125 mls/hr 08/09/21 20:15 08/11/21 13:34 Lr - Lactated Ringers Iv IV CONT Not Given .Q8H SIMONA Metronidazole 500 mg in 100 mls @ 100 mls/hr 08/10/21 15:29 08/11/21 14:54 Flagyl 500 Mg/Iso Soln 100 Ml IVPB 100 mls/hr Q8HR SIMONA Administration Levetiracetam 500 mg 08/10/21 21:00 08/11/21 08:03 Levetiracetam 500 Mg Tablet PO 500 mg Q12HR SIMONA Administration Loratadine 10 mg 08/10/21 15:29 Loratadine 10 Mg Tablet PO DAILY PRN allerg
[2021-08-11] MEDS: SIMETHICONE 125 MG CHEW TAB PO ×2 (17:35→20:12)
[2021-08-11] MEDS: HYDROcodone/acetaminophen (*CRX) 5-325 MG TABLET 1 TAB PO ×2 (17:36→22:33)
[2021-08-11] MEDS: buPROPion HCL XL (24 HR) 150 MG TABCR PO (20:12)
[2021-08-12 03:02] VITALS: BP 98/58; PULSE 63; RESP 16; TEMP 36.2; O2SAT 97
[2021-08-12] MEDS: LACTATED RINGERS 1,000 ML 125 ML IV CONT (05:01)
[2021-08-12] MEDS: metroNIDAZOLE 500 MG/ISO 100ML 500 MG/100 ML BAG 100 MG IVPB ×2 (05:32→13:27)
[2021-08-12] MEDS: HYDROcodone/acetaminophen (*CRX) 5-325 MG TABLET 1 TAB PO ×2 (05:36→09:59)
[2021-08-12 05:53] LABS: Basophils Percent Auto 0.2 % (0.2-1.2); Eosinophils Absolute Auto 0.1 K/mm3 (0-0.3); Eosinophils Percent Auto 1.1 % (0-4.4); Hematocrit 31.7 % (37.0-47.0); Hemoglobin 10.3 g/dL (12.0-15.0); Immature Granulocyte Absolute 0.02 K/mm3 (0.00-0.031); Immature Granulocyte Percent A 0.4 % (0-0.5); Immature Platelet Fraction Pct 3.2 % (0.9-11.2); Lymphocytes Absolute Auto 1.05 K/mm3 (0.9-3.2); Lymphocytes Percent Auto 23.3 % (18.3-44.2); Mean Corpuscular HGB Conc 32.5 g/dl (32-36); Mean Corpuscular Hemoglobin 33.2 pg (26-34); Mean Corpuscular Volume 102.3 fl (80-100); Mean Platelet Volume 9.6 fl (7.4-10.4); Monocytes Absolute Auto 0.4 K/mm3 (0.1-0.6); Monocytes Percent Auto 9.5 % (2.6-8.5); Neutrophils Percent Auto 65.5 % (45.5-73.1); Platelet Count Result 136 k/mm3 (150-375); Red Cell Distribution Width 12.6 % (11.5-14.5); White Blood Count 4.5 K/mm3 (4.5-10.0)
[2021-08-12] MEDS: levETIRAcetam 500 MG TABLET PO (07:55)
[2021-08-12] MEDS: SIMETHICONE 125 MG CHEW TAB PO ×2 (07:55→13:27)
--- NOTE | 2021-08-12 08:14 | PM.GYNPNOP ---
ICER HAND - A/P Assessment and plan (1) Pelvic abscess: Status: Acute (2) Abdominal pain: Qualifiers: Abdominal location: unspecified location Qualified Code(s): R10.9 - Unspecified abdominal pain Code(s): R10.9 - Unspecified abdominal pain Status: Acute Assessment and Plan: this patient is 41-year-old female who is postop day 2 from a incision drainage and drain placement of pelvic abscess. She appears improved overall. Her white count is improved. She does report some abdominal cramping. She had diarrhea last night. She is tolerating a full breakfast. Continue observation today, consider discharge later today with oral antibiotics. Postoperative Procedures: Procedures Operation Date: 08/10/21 13:00 Actual Procedure Side Surgeon p VAGINAL EXAM UNDER ANESTHESIA, CLOSURE OF VAGINAL CUFF Not Applicable Rodo Leo MD Time Spent With Patient Time: Total time spent is greater than 50% in coordination of care (as documented) at patient's floor/unit and/or counseling patient: Time with patient: 15 - 25 minutes ICER HAND- PN:Subj Post-Op Subjective Date/time seen: 08/12/21 08:14 patient tolerating p.o. this morning, eating a full breakfast, reports some increasing abdominal cramping and distension, had diarrhea last night, looks much better today, more comfortable Exam Const: General: healthy appearing, comfortable and no acute distress Resp: Auscultation: clear to auscultation bilaterally, no rales, no rhonchi and no wheezes Cardio: Rate: regular rate Heart sounds: no click, no murmurs and no rubs GI: Inspection: distended GI Palp: Yes abdominal tenderness ( mild, generalized) Auscultation: normal bowel sounds Extrem: General: normal to inspection, no pedal edema and no calf tenderness ICER HAND - PN: Obj Data Vital Signs Vital Signs: Vital Signs - 24 hr 08/11/21 10:00 08/11/21 12:00 08/11/21 14:46 Temperature 97.8 F 97.7 F Pulse Rate 70 67 67 Respiratory Rate 19 16 Blood Pressure 101/60 Pulse Oximetry 98 97 08/11/21 15:01 08/11/21 19:17 08/12/21 03:02 Temperature 97.7 F 97.1 F L Pulse Rate 65 63 Respiratory Rate 17 16 Blood Pressure 100/50 L 90/50 L 98/58 L Pulse Oximetry 96 97 Intake/Output Intake/Output: Intake & Output 08/09/21 08/10/21 08/11/21 08/12/21 23:59 23:59 23:59 23:59 Intake Total 1050 2920 4170 1550 Output Total 2300 1800 Balance 9707 477 1912 1550 Meds/Results Medications: Active Medications Generic Name Dose Route Start Last Admin Trade Name Freq PRN Reason Stop Dose Admin Hydrocodone Bitart/Acetaminophen 1 tab 08/11/21 12:25 08/12/21 05:36 Hydrocodone/Acetaminophen (*Crx) 5-325 Mg Tablet PO 1 tab Q4H PRN Administration Pain Rated 4-6 Albuterol 1 puff 08/10/21 15:29 Albuterol Sulfate (*Sp) Aerosol 1 Puff INHALATION Q4HRT PRN Bronchospasm Bupropion HCl 150 mg 08/10/21 21:00 08/11/21 20:12 Bupropion Hcl Xl (24 Hr) 150 Mg Tabcr PO 150 mg HS SIMONA Administration Piperacillin/Tazobactam/Dextrose 3.375 gm in 50 mls @ 100 mls/hr 08/10/21 01:00 08/12/21 05:30 Zosyn 3.375 Gm/D5w 50ml Pm IVPB Infused Q6HR SIMONA Infusion Lactated Ringer's 1,000 mls @ 125 mls/hr 08/09/21 20:15 08/12/21 05:01 Lr - Lactated Ringers Iv IV CONT 125 mls/hr .Q8H SIMONA Administration Metronidazole 500 mg in 100 mls @ 100 mls/hr 08/10/21 15:29 08/12/21 06:32 Flagyl 500 Mg/Iso Soln 100 Ml IVPB Infused Q8HR SIMONA Infusion Levetiracetam 500 mg 08/10/21 21:00 08/12/21 07:55 Levetiracetam 500 Mg Tablet PO 500 mg Q12HR SIMONA Administration Loratadine 10 mg 08/10/21 15:29 Loratadine 10 Mg Tablet PO DAILY PRN allergy symptoms Lorazepam 1 mg 08/10/21 15:29 Lorazepam (*Crx) 1 Mg Tablet PO TID PRN anxiety Morphine Sulfate 1 mg 08/11/21 12:26 Morphine Sulfate (*Crx) 4 Mg/Ml Inj IV PUSH Q2H PRN Breakthrough Pain Ondansetron HCl 4 mg 08/09
[2021-08-12 08:48] VITALS: BP 120/69; PULSE 68; RESP 18; TEMP 35.9; O2SAT 95
--- NOTE | 2021-08-12 09:52 | PCDIET ---
Dietitian Screen for BMI: 18.5 underweight. Patient states to weight loss in the past couple of months, unsure on amount. Discussed diet supplements with patient. She is willing to try ensure compact BID providing an additional 220 kcals and 9 gm protein. No further nutritional interventions.
--- NOTE | 2021-09-08 21:29 | PM.DS ---
DS: Admitting Diagnosis Discharge Date 08/12/21 Admitting Diagnosis pelvic abscess DS: Discharge Diagnosis Discharge Diagnosis (1) Vaginal cuff dehiscence: Code(s): T81.31XA - Disruption of external operation (surgical) wound, not elsewhere classified, initial encounter Status: Acute DS: Summary Hospital Course Reason for hospitalization: pelvic pain Hospital Course: this patient is a 41-year-old female presented for pelvic pain. She was postop approximately 4 weeks total laparoscopic hysterectomy. She is found to have a vaginal cuff abscess. A drain was placed in the operating room. A period of observation was completed during which she was afebrile while in her pain improved. She is discharged on hospital day 1. Time Spent with Patient Time attestation: Total time spent providing and/or coordinating discharge services: Discharge Plan Discharge Attending physician on discharge: Rodo Leo Consulting providers: [place] Manley Discharging Clinician: Rodo Leo Patient Disposition: Home, Self-Care Activity: pelvic rest Diet: regular Discharge Instructions: leave tanya drain in place, follow up with Dr Leo in [address] Leo will send Levaquin 500 mg daily prescription on hospital [facility] Patient Instructions: Antibiotic Form, How to Stop Smoking (DC), Pain Management (DC) Stand Alone Forms: General Discharge Information Follow-up/Referrals: Rodo Leo MD [Physician] - 1 Week Discharge Medications: Continued albuterol sulfate 90 mcg/actuation HFA aerosol inhaler 1 puff inhalation Q4H PRN (Reason: Bronchospasm) RF: 0 valacyclovir 500 mg tablet 500 mg PO DAILY RF: 0 fluconazole 150 mg tablet 150 mg PO .COMPLEX RF: 0 albuterol sulfate 2.5 mg /3 mL (0.083 %) solution for nebulization See Rx Instructions .ROUTE .COMPLEX PRN (Reason: Shortness Of Breath) RF: 0 metronidazole 500 mg tablet 500 mg PO BID RF: 0 cholecalciferol (vitamin D3) 50 mcg (2,000 unit) tablet 50 mcg PO DAILY Qty: 90 RF: 1 cetirizine [Zyrtec] 10 mg tablet 10 mg PO DAILY PRN (Reason: allergy symptoms) Qty: 90 RF: 1 bupropion HCl 150 mg tablet extended release 24 hr 150 mg PO HS Qty: 90 RF: 1 lorazepam 1 mg tablet 1 mg PO TID PRN (Reason: anxiety) Qty: 90 RF: 2 Discontinued hydrocodone-acetaminophen 10-325 mg tablet 1 tablet PO Q4-6H PRN (Reason: pain, moderate) Qty: 55 RF: 0 No Action levofloxacin 750 mg tablet 750 mg PO DAILY RF: 0 sucralfate [Carafate] 100 mg/mL suspension 1 g PO DAILY Qty: 200 RF: 0 pantoprazole [Protonix] 40 mg tablet,delayed release (DR/EC) 40 mg PO QAM 28 Days Qty: 28 RF: 0 levetiracetam 500 mg tablet See Rx Instructions .ROUTE .COMPLEX Qty: 60 RF: 5 hydrocodone-acetaminophen 10-325 mg tablet 1 tablet PO Q4-6H PRN (Reason: pain, moderate) Qty: 55 RF: 0 Date of admission: 08/10/21 09:42 Primary Care Provider: Nick Peres Admitting Provider: Rodo Leo Attending physician on admission: Rodo Leo Condition: Stable
== END 2021-08-12 15:15 | disposition home or self-care (01) | DRG 988 ==
LOC: ANHED 20:12 → ANHCPC 21:57 → ANH2MED 08-11 14:32
PROVIDERS: Admitting Provider Obstetrics & Gynecology; Emergency Provider Emergency Medicine; PCP Internal Medicine; Visit Provider Obstetrics & Gynecology
PROC: 0UQG7ZZ Repair Vagina, Via Natural or Artificial Opening (ICD-10-PCS; CPT 58260; principal; 2021-08-10 13:00)
DX: T81.31XA Disruption of external operation (surgical) wound, not elsewhere classified, initial encounter (principal); T81.43XA Infection following a procedure, organ and space surgical site, initial encounter; N73.0 Acute parametritis and pelvic cellulitis; Z20.822 Contact with and (suspected) exposure to COVID-19; J44.9 Chronic obstructive pulmonary disease, unspecified; L30.9 Dermatitis, unspecified; G40.909 Epilepsy, unspecified, not intractable, without status epilepticus; K21.9 Gastro-esophageal reflux disease without esophagitis; R91.8 Other nonspecific abnormal finding of lung field; F17.210 Nicotine dependence, cigarettes, uncomplicated; Z90.710 Acquired absence of both cervix and uterus
CPT/HCPCS: 36415; 74177; 80053; 81001; 83605; 83690; 85025; 85055; 87070; 87075; 87205; 96361; 96365; 96374; 96375; 96376; 99285; A9270; C9803; G0378; J2270; J2405; J2543; J2704; J3010; J7030; J7120; Q9967; U0003; U0005

== ENCOUNTER 2021-08-19 11:21 | Emergency (ER) | payer OTHER, SELFPAY ==
--- NOTE | ~2021-08-19 | CT_ITS ---
EXAMINATION: CT chest abdomen pelvis w con DATE: 08/19/2021 14:13 INDICATION: Chest and abdominal pain. TECHNIQUE: Computed tomography (CT) of the chest, abdomen, and pelvis was performed with 99 mL Omnipa que 350 intravenous contrast. Automated exposure control and iterative reconstruction technique were employed. The dose-length product was 228.40 mGy-cm. COMPARISON: CT abdomen and pelvis 08/09/2021, chest CT 05/04/2018 FINDINGS: CHEST CT: There is mild emphysema. There is mild scarring at the lung apices. There is a stable 4 mm nodule in left upper lobe, likely benign. There is minimal atelectasis in the lungs. No pleural effusion. The h eart size is normal. No pericardial effusion. There are coronary artery calcifications. ABDOMEN/PELVIS CT: The liver, gallbladder, spleen, pancreas, adrenal glands, and kidneys are normal. There are no dilate d loops of bowel. The appendix is normal. There is a 3.2 x 1.1 x 1.3 cm rim-enhancing fluid collectio n in the pelvis. There is trace ascites. There are no pathologically enlarged lymph nodes. There are chronic bilateral L5 pars defects. There is mild thoracolumbar spondylosis. IMPRESSION: 1. 3.2 x 1.1 x 1.3 cm rim-enhancing postoperative fluid collection in the pelvis. Reviewed, dictated and finalized at location A. R [employer] IMPRESSION: 1. 3.2 x 1.1 x 1.3 cm rim-enhancing postoperative fluid collection in the pelvi s.
[2021-08-19 11:30] VITALS: BP 134/73; PULSE 79; RESP 16; TEMP 36.6; O2SAT 97
[2021-08-19] MEDS: SODIUM CHLORIDE 0.9% IV 1,000 ML 999 ML IV CONT (12:54)
--- NOTE | 2021-08-19 13:03 | ED.GENADULT ---
HPI - General Adult General Chief complaint: Skin/Abscess/Foreign Body Stated complaint: something stuck in throat Time Seen by Provider: 08/19/21 12:39 Source: patient and RN notes reviewed History of Present Illness HPI narrative: 41-year-old female history of GERD presents the emergency department for evaluation of increased pain with swallowing over the last 2 days. Patient states that she feels she does have an esophageal obstruction. Patient is able to swallow bread and liquids. Patient states that she has pain through the chest and abdomen. Patient states she has had increased difficulty swallowing. Patient did have an emergency hysterectomy last week. Patient did have follow-up with Dr. Leo today. Related Data Home Medications Medication Instructions Recorded Confirmed albuterol sulfate 90 mcg/actuation 1 puff INHALATION Q4H PRN 06/11/20 08/14/21 aerosol inhaler fluconazole 150 mg tablet 150 mg PO .COMPLEX 07/29/21 08/14/21 valacyclovir 500 mg tablet 500 mg PO DAILY tablet 07/29/21 08/14/21 albuterol sulfate See Rx Instructions .ROUTE 08/10/21 08/14/21 .COMPLEX PRN metronidazole 500 mg PO BID 08/10/21 08/14/21 levofloxacin 750 mg tablet 750 mg PO DAILY 08/14/21 08/14/21 Allergies Allergy/AdvReac Type Severity Reaction Status Date / Time phenytoin Allergy Unknown Hives Verified 08/19/21 11:33 venom-wasp AdvReac Intermediate Muscle Pain Verified 08/19/21 11:33 Review of Systems Review of Systems: CONSTITUTIONAL: Denies fever, chills, or sweats. EYES: Denies visual changes, redness, or discharge. ENT: Denies rhinorrhea, congestion, sore throat, or otalgia. CARDIOVASCULAR: Midline chest pain when swallowing RESPIRATORY: Denies cough or dyspnea. GASTROINTESTINAL: Increased pain with drinking and swallowing but is able to get solids and liquids down. GENITOURINARY: Denies dysuria or hematuria. SKIN: Denies rash or itching. MUSCULOSKELETAL: Denies back pain, joint pain, or myalgia. NEUROLOGIC: Denies headache, numbness, or weakness. [facility] Past Medical History Medical History Acute right otitis media Allergic rhinitis Alopecia areata Anxiety Aspiration into airway Asthma exacerbation Bronchiectasis, uncomplicated Chronic obstructive pulmonary disease, unspecified Chronic rhinitis Cough Eczema Epilepsy, unspecified, not intractable, without status epilepticus Family hx colonic polyps Gastroesophageal reflux disease without esophagitis Lung nodule Maxillary sinusitis Mild intermittent asthma without complication Nicotine dependence, unspecified, uncomplicated Pulmonary nodules Rash Tobacco use Underweight (06/02/16) Unspecified asthma, uncomplicated Surgical History Surgical History H/O sinus surgery H/O: knee surgery History of knee surgery S/P YESY-BSO Family History Family History Mother Asthma Family history of chronic obstructive pulmonary disease Father Patient's father is Acute myocardial infarction Other Family history of autism Social History Social History Smoking packs per day: 1 Smoking cigarettes per day: 20.0 Years smoked: 25 Smoking pack-years: 25.00 Smoking status: Current every day smoker Second hand tobacco smoke exposure: Yes Alcohol intake: current Drinks per week: 1 Alcohol use details: A COUPLE A YEAR Substance use: never Substance use type: does not use Additional living arrangements comments: CHILDREN Spiritual care concerns: No Exam Narrative: APPEARANCE: Cachectic appearing HEAD: normocephalic, atraumatic. EYES: PERRLA/EOMI, conjunctivae clear. THROAT: Pharynx clear, no exudate. NECK: Supple. No adenopathy, no masses. RESPIRATORY: Airway patent, respirations nonlabored. Clear to auscultatio
[2021-08-19 13:08] LABS: Basophils Absolute Auto 0.1 K/mm3 (0.0-0.1); Eosinophils Absolute Auto 0.1 K/mm3 (0-0.3); Immature Granulocyte Percent A 0.3 % (0-0.5)
[2021-08-19 13:19] LABS: Lactic Acid Reflex 0.8 mmol/L (0.7-2.1)
[2021-08-19 13:23] LABS: Alanine Aminotransferase 13 U/L (4-35); Albumin Level 4.3 g/dL (3.5-5.1); Alkaline Phosphatase 103 U/L (38-126); Anion Gap 6 mmol/L (8-16); Aspartate Amino Transferase 26 U/L (14-36); Bilirubin,Total 0.5 mg/dL (0.2-1.3); Blood Urea Nitrogen 4 mg/dL (7-17); Calcium 9.1 mg/dL (8.4-10.2); Carbon Dioxide 29 mmol/L (22-30); Chloride 104 mmol/L (98-107); Estimated CRCL calculation 64 ml/min; Estimated Glomerular Filt Rate > 60; Glucose 90 mg/dL (65-110); Sodium 139 mmol/L (137-145)
[2021-08-19 13:58] LABS: Basophils Percent Auto 0.4 % (0.2-1.2); Eosinophils Percent Auto 1.1 % (0-4.4); Hematocrit 42.6 % (37.0-47.0); Hemoglobin 14.1 g/dL (12.0-15.0); Immature Granulocyte Absolute 0.04 K/mm3 (0.00-0.031); Lymphocytes Absolute Auto 2.49 K/mm3 (0.9-3.2); Lymphocytes Percent Auto 21.5 % (18.3-44.2); Mean Corpuscular HGB Conc 33.1 g/dl (32-36); Mean Corpuscular Hemoglobin 32.7 pg (26-34); Mean Corpuscular Volume 98.8 fl (80-100); Mean Platelet Volume 9.6 fl (7.4-10.4); Monocytes Absolute Auto 0.8 K/mm3 (0.1-0.6); Monocytes Percent Auto 6.5 % (2.6-8.5); Neutrophils Absolute Auto 8.1 K/mm3 (1.3-6.7); Neutrophils Percent Auto 70.2 % (45.5-73.1); Platelet Count Result 343 k/mm3 (150-375); Red Blood Count 4.31 M/mm3 (4.2-5.4); Red Cell Distribution Width 12.3 % (11.5-14.5); White Blood Count 11.6 K/mm3 (4.5-10.0)
[2021-08-19 17:13] VITALS: BP 129/72; PULSE 75; RESP 16; O2SAT 98
== END 2021-08-19 17:13 | disposition home or self-care (01) ==
PROVIDERS: Emergency Provider Emergency Medicine; PCP Internal Medicine
DX: K21.00 Gastro-esophageal reflux disease with esophagitis, without bleeding (principal); K29.00 Acute gastritis without bleeding; J44.9 Chronic obstructive pulmonary disease, unspecified; J45.20 Mild intermittent asthma, uncomplicated; G40.909 Epilepsy, unspecified, not intractable, without status epilepticus; F41.9 Anxiety disorder, unspecified; F17.210 Nicotine dependence, cigarettes, uncomplicated
CPT/HCPCS: 36415; 71260; 74177; 80053; 83605; 85025; 96360; 99284; J7030; Q9967

== ENCOUNTER 2022-05-09 12:15 | Outpatient (CLI) | payer OTHER, SELFPAY ==
--- NOTE | ~2022-05-09 | XR_ITS ---
EXAMINATION: XR chest 2V 05/09/2022 12:43 INDICATION: Shortness of breath and cough PROCEDURE: 2 view chest COMPARISON: Comparison to multiple prior studies sequentially, with oldest reviewed study dated 10/03. FINDINGS: The lungs are clear. The cardiomediastinal silhouette is within normal limits. There are no pleural effusions. There is no pneumothorax suspected. IMPRESSION: 1: NO ACUTE CARDIOPULMONARY DISEASE. Reviewed, dictated and finalized at location A. ATION SUPERVISOR
== END 2022-05-09 12:16 | disposition home or self-care (01) ==
PROVIDERS: PCP Internal Medicine; Visit Provider Nurse Practitioner Family
DX: R05.9 Cough, unspecified (principal); R06.02 Shortness of breath
CPT/HCPCS: 71046

== ENCOUNTER 2022-06-09 10:21 | Outpatient (CLI) | payer OTHER, SELFPAY ==
--- NOTE | ~2022-06-09 | CT_ITS ---
CT Scan of the Chest without Contrast: Clinical Indication: Bronchiectasis, cough Technique: Contiguous sections were acquired throughout the chest without intravenous contrast. Dose reduction technique was used on this scan by utilizing automated exposure control and iterative recon struction technique. The dose-length product (DLP) was 136.18 mGy-cm. COMPARISON: 08/19/2021 Findings: There is no evidence of any significant mediastinal, hilar or axillary lymphadenopathy. The mediastin al soft tissues appear normal. There is no evidence of pleural or pericardial effusion. There is bronchiolectasis in the right middle lobe and lingula. Suggestion of minimal patchy groundgl ass opacity in the lungs. There are a few tiny scattered semisolid nodular opacities. Images through the upper abdomen reveal no abnormalities. Impression: Bronchiolectasis right middle lobe and lingula, with minimal groundglass opacity in a few scattered s emisolid nodules. Findings suggest acute on chronic small airways infection or hypersensitivity pneum onitis. Reviewed, dictated and finalized at location [] FIELD PUMPER Impression: Bronchiolectasis right middle lobe and lingula, with minimal groundglass opacit y in a few scattered semisolid nodules. Findings suggest acute on chronic small airways infection or hypersensitivity pneumonitis.
== END 2022-06-09 10:22 | disposition home or self-care (01) ==
PROVIDERS: PCP Internal Medicine; Visit Provider Nurse Practitioner Family
DX: R05.3 Chronic cough (principal); J47.9 Bronchiectasis, uncomplicated
CPT/HCPCS: 71250

== ENCOUNTER 2022-08-25 08:59 | Outpatient (CLI) | payer MEDICARE, SELFPAY ==
[2022-08-25 10:11] LABS: Basophils Percent Auto 0.5 % (0.2-1.2); Eosinophils Absolute Auto 0.1 K/mm3 (0-0.3); Eosinophils Percent Auto 1.7 % (0-4.4); Hematocrit 42.2 % (37.0-47.0); Hemoglobin 14.1 g/dL (12.0-15.0); Immature Granulocyte Absolute 0.02 K/mm3 (0.00-0.031); Immature Granulocyte Percent A 0.2 % (0-0.5); Lymphocytes Absolute Auto 3.15 K/mm3 (0.9-3.2); Lymphocytes Percent Auto 37.3 % (18.3-44.2); Mean Corpuscular HGB Conc 33.4 g/dl (32-36); Mean Corpuscular Hemoglobin 32.3 pg (26-34); Mean Corpuscular Volume 96.6 fl (80-100); Mean Platelet Volume 9.9 fl (7.4-10.4); Monocytes Absolute Auto 0.6 K/mm3 (0.1-0.6); Monocytes Percent Auto 7.1 % (2.6-8.5); Neutrophils Absolute Auto 4.5 K/mm3 (1.3-6.7); Neutrophils Percent Auto 53.2 % (45.5-73.1); Platelet Count Result 221 k/mm3 (150-375); Red Blood Count 4.37 M/mm3 (4.2-5.4); Red Cell Distribution Width 13.2 % (11.5-14.5); White Blood Count 8.4 K/mm3 (4.5-10.0)
== END 2022-08-25 09:00 | disposition home or self-care (01) ==
LOC: ANHLAB 09:02
PROVIDERS: PCP Internal Medicine; Visit Provider Nurse Practitioner Family
DX: J47.9 Bronchiectasis, uncomplicated (principal)
CPT/HCPCS: 36415; 85025

== ENCOUNTER 2022-09-08 13:28 | Outpatient (CLI) | payer MEDICARE, MEDICAID, SELFPAY ==
--- NOTE | 2022-09-08 17:07 | WPDPFTINT ---
PFT Procedure Performed PFT Procedure Performed Spirometry with Pre/Post Bronchodilator Plethysmography (Lung Vol) Flow Vol Loop PFT Interpretation This is a pulmonary function test with pre and post-bronchodilator spirometry and plethysmography. The test was performed and results interpreted in accordance with the 2019 and 2005 ATS/ERS Task Force guidelines respectively using the Global Lung Function Initiative-2012 reference equations. Patient demonstrated good effort and cooperation. Reproducibility criteria were met. The quality of the pre bronchodilator spirometry maneuver was Grade B and post bronchodilator spirometry maneuver was Grade B. of note, patient had difficulty with both inspiratory and expiratory limb of spirometry trials, both pre and post. unable to complete breath hold for DLCO and also unable to hold breath without coughing when attempting to use albuterol inhaler. Findings: Spirometry: The contour of the expiratory flow tracing is variable with 2 of the 3 pre bronchodilator efforts showing a flattening and 2 of the 3 post bronchodilator efforts showing a flattening. The contour the inspiratory flow tracing is truncated. The pre bronchodilator FVC is 2.37 L, 73% predicted. The pre bronchodilator FEV1 is 1.96 L, 73% predicted. The pre bronchodilator FEV1: FVC ratio was 82%. The post bronchodilator FVC is 2.52 L, representing a 7% increase. The post bronchodilator FEV1 is 2.08 L, representing a 6% increase. The post bronchodilator FEV1: FVC ratio is 82%. Plethysmography: The total lung capacity is 4.53 L, 98% predicted. The functional residual capacity is 2.98 L, 118% predicted. The residual volume is 1.91 L, 127% predicted. In comparison to previous pulmonary function testing on 2017 the contour of the expiratory flow tracing was normal and now it is flattened. The contour the inspiratory flow tracing was normal and now it is truncated. The post bronchodilator FVC is unchanged from 2.40 L to 2.52 L. The post bronchodilator FEV1 is unchanged from 2.00 L to 2.08 L. The total lung capacity is unchanged from 4.78 L to 4.53 L. The functional residual capacity is unchanged from 3.37 L to 2.98 L. The residual volume is decreased from 2.37 L to 1.91 L. Impression: The patient had difficulty performing both the inspiratory and expiratory limb of the spirometry trials and I suspect that this resulted in flattening of the expiratory flow tracing. In addition, the patient had no expiratory flattening on a previous spirometry on 12/11/2017. Nonetheless, the contour the expiratory flow tracing is flattened. This could be consistent with a variable intrathoracic obstruction and can be seen with tracheomalacia of the intrathoracic airway, intrathoracic bronchogenic cyst, malignant tracheal lesions and vocal fold abnormalities. Clinical correlation is recommended. Otherwise, the spirometry is normal without evidence of an obstructive abnormality. There is no significant improvement after inhaling a single dose of albuterol. The lung volumes are normal. In comparison to previous pulmonary function testing on 12/11/2017 there has been a greater than anticipated time dependent decrease in the residual volume with no significant change in FVC, FEV1, total lung capacity, or functional residual capacity. Clinical correlation is recommended.
== END 2022-09-08 13:29 | disposition home or self-care (01) ==
PROVIDERS: PCP Internal Medicine; Visit Provider Physician Assistant
DX: J43.9 Emphysema, unspecified (principal)
CPT/HCPCS: 94060; 94726